=== PATIENT | female | born 1985 | race Caucasian/White ===

== ENCOUNTER 2016-06-06 15:20 | Emergency (ER) | payer OTHER ==
[2016-06-06 16:16] VITALS: BP 108/63
--- NOTE | 2016-06-06 16:55 | UC ---
Ear Complaint HPI - HPI Summary HPI Summary: 30 year old female with complaints of left ear pain x 2 days. Denies fever or chills. Has hx of sinusitis with surgery x 2, Dr Cabezas. Hx of allergies. Has had ear infections more over last few years. - History of Current Complaint Chief Complaint: UCEar Stated Complaint: LEFT EAR PAIN Time Seen by Provider: 06/06/16 16:41 Hx Obtained From: Patient Hx Last Menstrual Period: 06/06/16 ?: No Onset/Duration: Gradual Onset, Lasting Days - 2, Still Present Severity Initially: Mild Severity Currently: Moderate Alleviating Factors: Nothing Associated Signs/Symptoms: Positive: Hearing Loss - "seems muffled" Related History: Seasonal Allergies, Prior ENT Surgery - Allergies/Home Medications Allergies/Adverse Reactions: Allergies Allergy/AdvReac Type Severity Reaction Status Date / Time environmental Allergy Eyes Uncoded 06/06/16 16:11 Itchy/Swollen/Red/Watery Home Medications: Home Medications Ibuprofen TAB* [Advil TAB*] 400 mg PO Q6H PRN 06/06/16 [History Confirmed ] PMH/Surg Hx/FS Hx/Imm Hx Previously Healthy: Yes Endocrine History Of: Denies: Thyroid Disease Cardiovascular History Of: Denies: Hypertension Respiratory History Of: Reports: Asthma - Surgical History Surgical History: Yes Surgery Procedure, Year, and Place: Sinus surgery and fixed a deviated septum 2014, sinus surgery July 2015 - Family History Known Family History: Negative: Hypertension, Diabetes, Respiratory Disease - Social History Occupation: Employed Full-time Alcohol Use: Occasionally Substance Use Type: None Smoking Status (MU): Former Smoker Length of Time of Smoking/Using Tobacco: 3 years Have You Smoked in the Last Year: No Review of Systems Constitutional: Negative Skin: Negative Eyes: Negative ENT: Ear Ache - left Respiratory: Negative Cardiovascular: Negative Gastrointestinal: Negative Genitourinary: Negative Motor: Negative Neurovascular: Negative Musculoskeletal: Negative Neurological: Negative Psychological: Negative All Other Systems Reviewed And Are Negative: Yes Physical Exam Triage Information Reviewed: Yes Appearance: No Pain Distress, Well-Nourished, Ill-Appearing - mildly Vital Signs: Initial Vital Signs Temp 99.1 F 06/06/16 16:13 Pulse 75 06/06/16 16:13 Resp 16 06/06/16 16:13 BP 108/63 06/06/16 16:13 Pulse Ox 100 06/06/16 16:13 Vital Signs Reviewed: Yes Eyes: Positive: Conjunctiva Clear. Negative: Discharge ENT: Positive: Hearing grossly normal, Pharyngeal erythema, TM bulging, TM dull , TM red - left ear, Tonsillar swelling - 2+, Other: - no maxillary or frontal sinus pressure with palpation. Negative: Nasal congestion, Nasal drainage, Tonsillar exudate Neck: Positive: Supple, Nontender, No Lymphadenopathy Respiratory: Positive: Lungs clear, Normal breath sounds, No respiratory distress Cardiovascular: Positive: RRR, No Murmur Musculoskeletal: Positive: Strength Intact, ROM Intact Neurological: Positive: Alert, Muscle Tone Normal Psychological: Positive: Age Appropriate Behavior - pleasant and cooperative Skin: Negative: rashes, breakdown Ear Complaint Course/Dx - Differential Dx/Diagnosis Differential Diagnosis/HQI/PQRI: Cerumen Impaction, Otitis Media, URI Provider Diagnoses: Left otitis media Discharge - Discharge Plan Condition: Stable Disposition: HOME Prescriptions: Amoxicillin/Clavulanate TAB* [Augmentin TAB 875*] 875 mg PO BID #20 tab Fluconazole 150 MG (NF) [Diflucan 150 mg (NF)] 150 mg PO ONCE #2 tab Patient Education Materials: Otitis Media (ED), Amoxicillin/Clavulanate Potassium (By mouth), Fluconazole (By mouth) Referrals: Daisha Burns NP [Primary Care Provider] - Hernan Cabezas MD [Medical Doctor] - If Needed
== END 2016-06-06 17:05 | disposition home or self-care (01) ==
LOC: UCCORT 15:20
DX: H66.92 Otitis media, unspecified, left ear (principal); Z87.891 Personal history of nicotine dependence; Z98.890 Other specified postprocedural states
CPT/HCPCS: 99212; G0463

== ENCOUNTER 2016-08-09 10:41 | Emergency (ER) | payer OTHER ==
[2016-08-09 12:41] VITALS: BP 107/63
--- NOTE | 2016-08-09 13:08 | UC ---
Throat Pain/Nasal Jourdan HPI - HPI Summary HPI Summary: 30 female presents with complaints of dysphagia when swallowing foods or drinking. Patient states this began yesterday morning and it gets better as the day goes on. She also admits to having a slight cough that just began today. Has a significant history for sinus polyps/problems with 2 previous surgeries. She denies any out of her norm sinus pressure/discomfort. She admits to some nasal congestion. Denies fever, chills, nausea, vomiting, difficulty breathing and chest pain. States she wanted to make sure before it got worse because her is a ferreira and she does not want to get him sick. Take antihistamine daily and also uses flonase and saline rinses. Also has been getting ear infections often. Sees ENT. - History of Current Complaint Chief Complaint: UCRespiratory Stated Complaint: SORE THROAT,COUGH Time Seen by Provider: 08/09/16 12:53 Hx Obtained From: Patient Hx Last Menstrual Period: 08/05/16 ?: No Onset/Duration: Sudden Onset Severity: Mild Pain Intensity: 5 - only upon swallowing, intermittently, burning/achey Pain Scale Used: 0-10 Numeric Cough: Nonproductive Associated Signs & Symptoms: Positive: Dysphagia, Nasal Discharge - Allergies/Home Medications Allergies/Adverse Reactions: Allergies Allergy/AdvReac Type Severity Reaction Status Date / Time environmental Allergy Eyes Uncoded 08/09/16 12:41 Itchy/Swollen/Red/Watery Home Medications: Home Medications Omeprazole CAP* [Prilosec CAP* 20 MG] 20 mg PO DAILY 08/09/16 [History Confirmed 08/09/16] PMH/Surg Hx/FS Hx/Imm Hx Endocrine History Of: Denies: Thyroid Disease Cardiovascular History Of: Denies: Hypertension Respiratory History Of: Reports: Asthma - Surgical History Surgical History: Yes Surgery Procedure, Year, and Place: Sinus surgery and fixed a deviated septum 2014, sinus surgery July 2015 - Family History Known Family History: Negative: Hypertension, Diabetes, Respiratory Disease - Social History Alcohol Use: Occasionally Substance Use Type: None Smoking Status (MU): Former Smoker Length of Time of Smoking/Using Tobacco: 3 years Have You Smoked in the Last Year: No Review of Systems Constitutional: Negative Skin: Negative Eyes: Negative ENT: Sore Throat, Nasal Discharge Respiratory: Cough Cardiovascular: Negative Gastrointestinal: Negative Musculoskeletal: Negative Neurological: Headache - yesterday Psychological: Negative All Other Systems Reviewed And Are Negative: Yes Physical Exam Triage Information Reviewed: Yes Appearance: Well-Appearing, No Pain Distress, Well-Nourished Vital Signs: Initial Vital Signs Temp 98.8 F 08/09/16 12:37 Pulse 80 08/09/16 12:37 Resp 14 08/09/16 12:37 BP 107/63 08/09/16 12:37 Pulse Ox 98 08/09/16 12:37 Vital Signs Reviewed: Yes Eyes: Positive: Conjunctiva Clear ENT: Positive: Normal ENT inspection, Hearing grossly normal, Pharynx normal, Nasal congestion, TMs normal, Tonsillar swelling - minimal. Negative: Tonsillar exudate, Trismus, Muffled/hoarse voice Dental: Negative: Percussion Tenderness @, Cervical Lymphadenopathy Neck: Positive: Supple, Nontender, No Lymphadenopathy Respiratory: Positive: Chest non-tender, Lungs clear, Normal breath sounds, No respiratory distress, No accessory muscle use Cardiovascular: Positive: RRR, No Murmur, Pulses Normal, Brisk Capillary Refill Abdominal Exam: Normal Abdomen Description: Positive: Nontender, No Organomegaly, Soft Bowel Sounds: Positive: Present Musculoskeletal: Positive: Strength Intact, ROM Intact Neurological Exam: Normal Psychological Exam: Normal Skin Exam: Normal Throat Pain/Nasal Course/Dx - Differential Dx/Diagnosis Differential Diagnosis/HQI/PQRI: Influenza, Laryngitis, Pharyngitis, Sinusitis, Tonsillitis, URI Provider Diagnoses: rhinosinusitis Discharge - Discharge Plan Condition: Stable Disposition: HOME Patient Education Materials: Rhinosinusitis (ED) Referrals: Daisha Burns NP [Primary Care Provider] - Additional Instructions: Continue taking daily antihistamine, flonase and saline rinses for symptoms. Recommend Tyelnol and Ibuprofen for discomfort/fever. Also try using chloraseptic spray to help soothe throat, that you can find over the counter. Drink plenty of fluids, get plenty of rest and wash hands frequently. If symptoms worsen or new symptoms develop please seek medical attention.
== END 2016-08-09 13:15 | disposition home or self-care (01) ==
LOC: UCCORT 10:41
DX: J32.9 Chronic sinusitis, unspecified (principal); J45.909 Unspecified asthma, uncomplicated; Z87.891 Personal history of nicotine dependence
CPT/HCPCS: 99211; G0463

== ENCOUNTER 2016-08-14 10:43 | Emergency (ER) | payer OTHER ==
[2016-08-14 11:42] VITALS: BP 115/65
--- NOTE | 2016-08-14 11:53 | UC ---
Ear Complaint HPI - HPI Summary HPI Summary: had a sore throat earlier this month---for the past 2 days she has had a right ear aches - History of Current Complaint Chief Complaint: UCEar Stated Complaint: EAR PAIN Time Seen by Provider: 08/14/16 11:48 Hx Obtained From: Patient Hx Last Menstrual Period: 07/29/16 ?: No Onset/Duration: Sudden Onset, Lasting Days - 2, Still Present Severity Initially: Moderate Severity Currently: Moderate Pain Intensity: 7 Pain Scale Used: 0-10 Numeric Aggravating Factors: Nothing Alleviating Factors: Nothing - has triend Mucinex and Naproxen D with out relief Associated Signs/Symptoms: Positive: Hearing Loss - muffled sounds - Allergies/Home Medications Allergies/Adverse Reactions: Allergies Allergy/AdvReac Type Severity Reaction Status Date / Time environmental Allergy Eyes Uncoded 08/14/16 11:42 Itchy/Swollen/Red/Watery Home Medications: Home Medications Pseudoephedrine-Naproxen Sodiu [Aleve-D Sinus & Cold 120-220 mg] 1 tab PO Q6H PRN 08/14/16 [History Confirmed 08/14/16] PMH/Surg Hx/FS Hx/Imm Hx Previously Healthy: No Endocrine History Of: Denies: Thyroid Disease Cardiovascular History Of: Denies: Hypertension Respiratory History Of: Reports: Asthma - Surgical History Surgical History: Yes Surgery Procedure, Year, and Place: Sinus surgery and fixed a deviated septum 2014, sinus surgery July 2015 - Family History Known Family History: Negative: Hypertension, Diabetes, Respiratory Disease - Social History Occupation: Employed Full-time - landscaping Lives: With Family Alcohol Use: Occasionally Substance Use Type: None Smoking Status (MU): Former Smoker Length of Time of Smoking/Using Tobacco: 3 years Have You Smoked in the Last Year: No Review of Systems Constitutional: Chills Skin: Negative Eyes: Negative ENT: Ear Ache Respiratory: Negative Cardiovascular: Negative Gastrointestinal: Negative Genitourinary: Negative Motor: Negative Neurovascular: Negative Musculoskeletal: Negative Neurological: Negative Psychological: Negative All Other Systems Reviewed And Are Negative: Yes Physical Exam Triage Information Reviewed: Yes Appearance: Well-Appearing, No Pain Distress, Well-Nourished Vital Signs: Initial Vital Signs Temp 97.6 F 08/14/16 11:36 Pulse 81 08/14/16 11:36 Resp 15 08/14/16 11:36 BP 115/65 08/14/16 11:36 Pulse Ox 98 08/14/16 11:36 Vital Signs Reviewed: Yes Eye Exam: Normal Eyes: Positive: Conjunctiva Clear ENT Exam: Normal ENT: Positive: Normal ENT inspection, Hearing grossly normal, Pharynx normal, TMs normal - left, TM red - right. Negative: Nasal congestion, Nasal drainage, Tonsillar swelling, Tonsillar exudate, Trismus, Muffled/hoarse voice Dental Exam: Normal Neck exam: Normal Neck: Positive: Supple, Nontender, No Lymphadenopathy Respiratory Exam: Normal Respiratory: Positive: Chest non-tender, Lungs clear, Normal breath sounds, No respiratory distress, No accessory muscle use Cardiovascular Exam: Normal Cardiovascular: Positive: RRR, No Murmur, Pulses Normal, Brisk Capillary Refill Musculoskeletal Exam: Normal Musculoskeletal: Positive: Strength Intact, ROM Intact, No Edema Neurological Exam: Normal Neurological: Positive: Alert, Muscle Tone Normal Psychological Exam: Normal Skin Exam: Normal Ear Complaint Course/Dx - Course Course Of Treatment: continue otc treated for decongestant, and pain add Amoxicillin for 10 days (and diflucan if needed) increase fluids rest follow with pcp - Differential Dx/Diagnosis Differential Diagnosis/HQI/PQRI: Cellulitis, Cerumen Impaction, Otitis Externa, Otitis Media, URI Provider Diagnoses: Right Otitis Media Discharge - Discharge Plan Condition: Stable Disposition: HOME Prescriptions: Amoxicillin (*) [Amoxicillin 875 MG (*)] 875 mg PO BID #20 tab Fluconazole [Diflucan 150 MG (NF)] 150 mg PO ONCE #1 tab Patient Education Materials: Amoxicillin (By mouth), Otitis Media (ED) Referrals: Dasiha Burns NP [Primary Care Provider] - 2 Weeks
== END 2016-08-14 12:36 | disposition home or self-care (01) ==
LOC: UCCORT 10:43
DX: H66.91 Otitis media, unspecified, right ear (principal); J45.909 Unspecified asthma, uncomplicated; Z87.891 Personal history of nicotine dependence
CPT/HCPCS: 99212; G0463

== ENCOUNTER 2016-08-15 09:03 | Emergency (ER) | payer OTHER ==
[2016-08-15 09:23] VITALS: BP 117/68
[2016-08-15] MEDS ORDERED: Albuterol 2.5 MG/3 ML NEB.SOL* (0.083%) INH ONE (09:37)
[2016-08-15] MEDS ORDERED: Ipratropium 0.5MG/2.5ML NEB* 0.5 MG/2.5 ML NEB.SOLN INH ONE (09:37)
[2016-08-15] MEDS ORDERED: predniSONE TAB* 20 MG PO ONE (09:37)
--- NOTE | 2016-08-15 09:37 | UC ---
Respiratory Complaint HPI - History of Current Complaint Chief Complaint: UCRespiratory Stated Complaint: COUGH Time Seen by Provider: 08/15/16 09:30 Hx Obtained From: Patient Hx Last Menstrual Period: 07/29/16 ?: No Onset/Duration: Sudden Onset, Lasting Weeks - 1, Worse Since - onset Timing: Constant Severity Initially: Mild Severity Currently: Moderate Character: Cough: Nonproductive Aggravating Factors: Deep Breaths Associated Signs And Symptoms: Positive: Dyspnea, Fever, Chills, Wheezing, URI, Nasal Congestion, Sinus Discomfort Related History: Seasonal Allergies - with nasal polyps - Risk Factors Pulmonary Embolism Risk Factors: Negative Cardiac Risk Factors: Negative Pseudomonas Risk Factors: Negative Tuberculosis Risk Factors: Negative - Allergies/Home Medications Allergies/Adverse Reactions: Allergies Allergy/AdvReac Type Severity Reaction Status Date / Time environmental Allergy Eyes Uncoded 08/14/16 11:42 Itchy/Swollen/Red/Watery Home Medications: Home Medications Albuterol HFA INHALER* [Ventolin HFA Inhaler*] 2 puff INH BID PRN 08/15/16 [ History Confirmed 08/15/16] PMH/Surg Hx/FS Hx/Imm Hx Endocrine History Of: Denies: Thyroid Disease Cardiovascular History Of: Denies: Hypertension Respiratory History Of: Reports: Asthma - Surgical History Surgical History: Yes Surgery Procedure, Year, and Place: Sinus surgery and fixed a deviated septum 2014, sinus surgery July 2015 - Family History Known Family History: Negative: Cardiac Disease, Hypertension, Diabetes, Respiratory Disease - Social History Occupation: Employed Full-time Lives: With Family Alcohol Use: Occasionally Substance Use Type: None Smoking Status (MU): Former Smoker Length of Time of Smoking/Using Tobacco: 3 years Have You Smoked in the Last Year: No Review of Systems Constitutional: Fever, Chills ENT: Sore Throat, Ear Ache, Nasal Discharge Respiratory: Shortness Of Breath, Cough All Other Systems Reviewed And Are Negative: Yes Physical Exam Triage Information Reviewed: Yes Appearance: No Pain Distress, Well-Nourished, Ill-Appearing Vital Signs: Initial Vital Signs Temp 100.1 F 08/15/16 09:16 Pulse 117 08/15/16 09:16 Resp 24 08/15/16 09:16 BP 117/68 08/15/16 09:16 Pulse Ox 98 08/15/16 09:16 Vital Signs Reviewed: Yes Eyes: Positive: Conjunctiva Clear ENT: Positive: TMs normal - , TM bulging - AD, pus filled, TM dull - AD Neck exam: Normal Respiratory: Positive: Wheezing - diffuse end inspiratory and exiratory Cardiovascular: Positive: RRR. Negative: No Murmur Musculoskeletal Exam: Normal Neurological Exam: Normal Psychological Exam: Normal Skin Exam: Normal UC Diagnostic Evaluation - Laboratory O2 Sat by Pulse Oximetry: 98 Re-Evaluation - Re-Evaluation First Eval Re-Evaluation Time: 10:15 Change: Improved - wheezing is much better Respiratory Course/Dx - Differential Dx/Diagnosis Differential Diagnosis/HQI/PQRI: Asthma, Lower Resp Infection, Sinusitis Provider Diagnoses: Acute URI. Asthama with acute exacerbation. Acute right supportative otitis media. Discharge - Discharge Plan Condition: Stable Disposition: HOME Prescriptions: Albuterol/Ipratropium RESP(NF) [Combivent Respimat(NF)] 2 puff IN QID PRN #1 aer PRN Reason: Wheezing Amoxicillin/Clavulanate TAB* [Augmentin TAB 875*] 875 mg PO BID #20 tab predniSONE TAB* [Deltasone TAB*] 20 mg PO DAILY #18 tab Patient Education Materials: Upper Respiratory Infection (ED), Otitis Media (ED ), Amoxicillin/Clavulanate Potassium (By mouth), Asthma (ED), Prednisone (By mouth), Ipratropium/Albuterol (By breathing) Additional Instructions: Tilt the head down when doing the flonase and do the flonase 30-45 minutes after doing the Neilmed Sinus rinse. NEILMED SINUS RINSE: CHECK OUT AT [facility] [employer] Saline nasal wash helps with mucous, allergies and congestion. It can be used up to twice a day or only as needed. Use lukewarm tap water. It does not have to be sterilized or distilled water. Do 1/3 on each side and snort out of both nostrils. Repeat the process with 1/6 of the bottle on each side with snorting in between to finish the solution in the bottle
== END 2016-08-15 10:31 | disposition home or self-care (01) ==
LOC: UCCORT 09:03
DX: J06.9 Acute upper respiratory infection, unspecified (principal); J45.901 Unspecified asthma with (acute) exacerbation; H66.001 Acute suppurative otitis media without spontaneous rupture of ear drum, right ear; Z87.891 Personal history of nicotine dependence
CPT/HCPCS: 99213; G0463; J7512; J7644

== ENCOUNTER 2016-12-08 07:51 | Emergency (ER) | payer OTHER ==
[2016-12-08 08:00] VITALS: BP 113/59
[2016-12-08] MEDS ORDERED: Albuterol 2.5 MG/3 ML NEB.SOL* (0.083%) INH ONE (08:12)
--- NOTE | 2016-12-08 08:16 | UC ---
Respiratory Complaint HPI - HPI Summary HPI Summary: cough x 3 days + chest congestion , wheezing , sob , no fever, no chills, cough is dry , worse with deep breathing no nasal congestion , no sore throat - History of Current Complaint Chief Complaint: UCRespiratory Stated Complaint: COUGH,WHEEZING Time Seen by Provider: 12/08/16 08:08 Hx Obtained From: Patient Hx Last Menstrual Period: 11/18 ?: No Onset/Duration: Gradual Onset, Lasting Days - 3, Still Present Severity Initially: Moderate Severity Currently: Moderate Character: Cough: Nonproductive Aggravating Factors: Exertion, Deep Breaths Alleviating Factors: Bronchodilator Associated Signs And Symptoms: Positive: Dyspnea, Wheezing. Negative: Fever, Chills, Calf Pain, Calf Swelling, URI, Nasal Congestion, Hoarseness, Sinus Discomfort - Allergies/Home Medications Allergies/Adverse Reactions: Allergies Allergy/AdvReac Type Severity Reaction Status Date / Time environmental Allergy Eyes Uncoded 12/08/16 08:01 Itchy/Swollen/Red/Watery PMH/Surg Hx/FS Hx/Imm Hx Respiratory History: Asthma - Surgical History Surgical History: Yes Surgery Procedure, Year, and Place: Sinus surgery and fixed a deviated septum 2014, sinus surgery July 2015 - Family History Known Family History: Negative: Cardiac Disease, Hypertension, Diabetes, Respiratory Disease - Social History Alcohol Use: Occasionally Substance Use Type: None Smoking Status (MU): Former Smoker Length of Time of Smoking/Using Tobacco: 3 years Have You Smoked in the Last Year: No Review of Systems Constitutional: Negative Skin: Negative Eyes: Negative ENT: Negative Respiratory: Shortness Of Breath, Cough Cardiovascular: Negative Gastrointestinal: Negative All Other Systems Reviewed And Are Negative: Yes Physical Exam Triage Information Reviewed: Yes Appearance: Well-Appearing, No Pain Distress, Well-Nourished Vital Signs: Initial Vital Signs Temp 99 F 12/08/16 07:55 Pulse 92 12/08/16 07:55 Resp 20 12/08/16 07:55 BP 113/59 12/08/16 07:55 Pulse Ox 96 12/08/16 07:55 Vital Signs Reviewed: Yes Eyes: Positive: Conjunctiva Clear ENT: Positive: Normal ENT inspection, Hearing grossly normal, Pharynx normal Neck: Positive: Supple, Nontender Respiratory: Positive: Respiratory distress - mild, Decreased breath sounds, Wheezing. Negative: No accessory muscle use Cardiovascular: Positive: RRR, No Murmur, Pulses Normal Abdominal Exam: Normal Skin Exam: Normal UC Diagnostic Evaluation - Laboratory O2 Sat by Pulse Oximetry: 96 Respiratory Course/Dx - Differential Dx/Diagnosis Provider Diagnoses: asthmatic bronchitis Discharge - Discharge Plan Condition: Stable Disposition: HOME Prescriptions: predniSONE TAB* [Deltasone TAB*] 40 mg PO DAILY #10 tab Patient Education Materials: Asthma (ED) Referrals: Daisha Burns NP [Primary Care Provider] - 7 Days
== END 2016-12-08 08:48 | disposition home or self-care (01) ==
LOC: UCCORT 07:51
DX: J45.909 Unspecified asthma, uncomplicated (principal); Z87.891 Personal history of nicotine dependence
CPT/HCPCS: 99212; G0463

== ENCOUNTER 2017-04-06 07:41 | Emergency (ER) | payer OTHER ==
--- NOTE | 2017-04-06 07:44 | UC ---
Throat Pain/Nasal Jourdan HPI - HPI Summary HPI Summary: 31 YEAR OLD FEMALE PRESENTS WITH SEVERE RIGHT EAR PAIN AND SINUS CONGESTION. - History of Current Complaint Stated Complaint: RIGHT EAR COMPLAINT/CONGESTION Time Seen by Provider: 04/06/17 07:44 Hx Obtained From: Patient Hx Last Menstrual Period: 11/18 Onset/Duration: Sudden Onset Severity: Moderate Pain Scale Used: 0-10 Numeric - 5 - Allergies/Home Medications Allergies/Adverse Reactions: Allergies Allergy/AdvReac Type Severity Reaction Status Date / Time environmental Allergy Eyes Uncoded 04/06/17 07:47 Itchy/Swollen/Red/Watery Home Medications: Home Medications Aleve D 1 tab PO Q12H PRN 04/06/17 [History] Diphenhydramine HCl [Benadryl Allergy 25 MG CAP] 25 mg PO Q6H PRN 04/06/17 [ History Confirmed 04/06/17] Fluticas/Salmet 115/21 HFA(NF) [Advair HFA 115/21 (NF)] 2 puff INH DAILY [History Confirmed 04/06/17] Pseudoephedrine TAB* [Sudafed TAB*] 30 mg PO Q6H PRN 04/06/17 [History Confirmed 04/06/17] PMH/Surg Hx/FS Hx/Imm Hx Previously Healthy: Yes - Surgical History Surgical History: Yes Surgery Procedure, Year, and Place: Sinus surgery and fixed a deviated septum 2014, sinus surgery July 2015 - Family History Known Family History: Negative: Cardiac Disease, Hypertension, Diabetes, Respiratory Disease - Social History Alcohol Use: Occasionally Substance Use Type: None Smoking Status (MU): Former Smoker Length of Time of Smoking/Using Tobacco: 3 years Have You Smoked in the Last Year: No Review of Systems Constitutional: Negative Skin: Negative Eyes: Negative ENT: Sore Throat, Ear Ache, Nasal Discharge, Sinus Congestion, Sinus Pain/ Tenderness Respiratory: Negative Cardiovascular: Negative Gastrointestinal: Negative Genitourinary: Negative Motor: Negative Neurovascular: Negative Musculoskeletal: Negative Neurological: Negative Psychological: Negative All Other Systems Reviewed And Are Negative: Yes Physical Exam Triage Information Reviewed: Yes Vital Signs Reviewed: Yes Eye Exam: Normal ENT: Positive: Pharyngeal erythema, Nasal congestion, Nasal drainage, Other - RIGHT EAR AOM Dental Exam: Normal Neck exam: Normal Neck: Positive: 1 Respiratory Exam: Normal Cardiovascular Exam: Normal Abdominal Exam: Normal Musculoskeletal Exam: Normal Neurological Exam: Normal Psychological Exam: Normal Skin Exam: Normal Throat Pain/Nasal Course/Dx - Differential Dx/Diagnosis Provider Diagnoses: RIGHT EAR AOM. SINUS CONGESTION Discharge - Discharge Plan Condition: Stable Disposition: HOME Prescriptions: Amoxicillin/Clavulanate TAB* [Augmentin TAB 875*] 875 mg PO BID #20 tab Methylprednisolone [Medrol Dosepak 4 MG*] 4 mg PO .SEE MADELINE INSTRUCTION #21 tab Neomyc/Polym/HC 1% OTIC SUSP* [Cortisporin Otic Susp 1%*] 4 drop RIGHT EAR QID # 1 btl Patient Education Materials: Sinusitis (ED), Otitis Externa (ED), Otitis Media (ED), Earache (ED) Referrals: Daisha Burns NP [Primary Care Provider] -
[2017-04-06 08:04] VITALS: BP 107/71
== END 2017-04-06 08:07 | disposition home or self-care (01) ==
LOC: UCCORT 07:41
DX: J02.0 Streptococcal pharyngitis (principal)
CPT/HCPCS: 99212; G0463

== ENCOUNTER 2017-04-07 18:52 | Emergency (ER) | payer OTHER ==
[2017-04-07 19:57] VITALS: BP 123/70
--- NOTE | 2017-04-19 20:03 | UC ---
Ear Complaint HPI - HPI Summary HPI Summary: 31 year old female presents with complains of severe right ear pain after failing outpatient therapy x 2. - History of Current Complaint Chief Complaint: UCEar Stated Complaint: RE-CK, EAR PAIN Hx Obtained From: Patient Hx Last Menstrual Period: 03/19/17 ?: No Onset/Duration: Sudden Onset Severity Initially: Severe Severity Currently: Severe Pain Intensity: 10 Pain Scale Used: 0-10 Numeric - Allergies/Home Medications Allergies/Adverse Reactions: Allergies Allergy/AdvReac Type Severity Reaction Status Date / Time environmental Allergy Eyes Uncoded 04/07/17 19:57 Itchy/Swollen/Red/Watery PMH/Surg Hx/FS Hx/Imm Hx Previously Healthy: Yes - Surgical History Surgical History: Yes Surgery Procedure, Year, and Place: Sinus surgery and fixed a deviated septum 2014, sinus surgery July 2015, sinus 02/2017 - Family History Known Family History: Negative: Cardiac Disease, Hypertension, Diabetes, Respiratory Disease - Social History Alcohol Use: Occasionally Substance Use Type: None Smoking Status (MU): Former Smoker Length of Time of Smoking/Using Tobacco: 3 years Have You Smoked in the Last Year: No Review of Systems Constitutional: Negative Skin: Negative Eyes: Negative ENT: Ear Ache Respiratory: Negative Cardiovascular: Negative Gastrointestinal: Negative Genitourinary: Negative Motor: Negative Neurovascular: Negative Musculoskeletal: Negative Neurological: Negative Psychological: Negative All Other Systems Reviewed And Are Negative: Yes Physical Exam Triage Information Reviewed: Yes Vital Signs: Initial Vital Signs Temp 36.6 C 04/07/17 19:52 Pulse 76 04/07/17 19:52 Resp 16 04/07/17 19:52 BP 123/70 04/07/17 19:52 Pulse Ox 99 04/07/17 19:52 Vital Signs Reviewed: Yes Eye Exam: Normal ENT: Positive: Other - mastoid very tender/eruthema/swelling Dental Exam: Normal Neck exam: Normal Neck: Positive: 1 Respiratory Exam: Normal Cardiovascular Exam: Normal Abdominal Exam: Normal Musculoskeletal Exam: Normal Neurological Exam: Normal Psychological Exam: Normal Skin Exam: Normal Ear Complaint Course/Dx - Differential Dx/Diagnosis Provider Diagnoses: mastoiditis Discharge - Discharge Plan Condition: Stable Disposition: OTHER Discharge Disposition Comment: patient suggested to go to the er Patient Education Materials: Earache (ED) Referrals: Daisha Burns NP [Primary Care Provider] - Additional Instructions: patient suggested to go to the er.
== END 2017-04-07 20:16 ==
LOC: UCCORT 18:52
DX: H70.91 Unspecified mastoiditis, right ear (principal); Z87.891 Personal history of nicotine dependence
CPT/HCPCS: 99212; G0463

== ENCOUNTER 2017-05-04 10:24 | Emergency (ER) | payer OTHER ==
--- OUTSIDE RECORDS SUMMARY | 2017-05-04 10:34 | XMS REPORT ---
:1985 External Reference #:[id number] Author Organization [employer] Address [address] [address] Phone [phone] Care Team Providers Name Role Phone Csaandra Burns NP Care Team Information Frozen Food Department Manager Unavailable Payers Type Date Identification Numbers Payment Provider Subscriber Commercial Policy Number: [id number] [facility] Caroline Brunson PayID: [id number] [address] [address] [place] [address] Problems Date Description Provider Status Onset: 03/13/2014 Allergic rhinitis due to pollen Casandra Burns NP Active Family History Date Family Member(s) Problem(s) Comments Father Hypertension Mother Diabetes, Adult Children None Siblings 3 BROTHERS HEALTHY Social History Type Date Description Comments Marital Status Occupation [employer] Cigarette Use Former Cigarette Smoker 1-5 Cigarettes Daily Cigarette Use Quit - Age 23 ETOH Use Occasionally consumes alcohol Recreational Drug Use Denies Drug Use Smoking Patient is a former smoker Allergies, Adverse Reactions, Alerts Date Description Reaction Status Severity Comments 06/07/2015 NKDA active Medications Medication Date Status Form Strength Qnty SIG Indications Ordering Provider Fluconazole 03/08 Active Tablets 150mg 1tabs 1 by mouth B37.9 may repeat Casandra, after 2 GARBAGE COLLECTOR days if still symptomati c Guaifenesin ac 03/08 Active Syrup 100-10mg/ 473ml 10 ml 5ML every 4 Casandra, hours as GARBAGE COLLECTOR needed for cough Montelukast 01/22 Active Tablets 10mg 30tab one by R05 Grant s mouth Casandra, every at GARBAGE [employer]OR bedtime Epinephrine 01/04 Active Solution 0.3mg/0.3 1unit use as Auto-Inject ML raf Escamilla for MD allergic reaction Auvi-Q 01/04 Active Solution 0.3mg/0.3 2unit use as J30.1 Auto-Inject ML s needed for Zachery Escamilla MD s Advair HFA 12/16 Active Aerosol 115-21mcg 12uni inhale 2 Patricia, /2016 /Act ts puffs Rox, twice a PA day Ipratropium 12/14 Active Solution 0.5-2.5(3 270un inhale the , [place]/Albuterol )mg/3ML its contents Casandra, Sulfate of one GARBAGE [employer]OR vial via nebulizer every 4 to 6 hours as needed for shortness of breath / wheezing Nebulizer 12/08 Active Device 1unit use as Grant s directed KELLI Guajardo Loratadine 05/07 Active Tablets 10mg 30tab 1 by mouth J30.89 Grant, s every day MD Luis Felipe Fluticasone 06/05 Active Suspension 50mcg/Act 1unit 2 sprays J30.89 Grant, s each nare Casandra, every day GARBAGE COL[employer]OR Ventolin HFA 03/13 Active Aerosol 108(90Bas 1unit 2 puffs J20.9 Oswaldo , e) s every 4 Casandra, mcg/Act hrs/prn GARBAGE [employer]OR cough or wheezing Ortho Tri-Cyclen Active Tablets 0.18/0.21 1 by mouth Unknown Lo /0000 5/0.25 every day mg-25 mcg Valacyclovir HCL Active Tablets 500mg 1 by mouth Unknown /0000 every day Amoxicillin/Clavu Active Tablets 875-125mg Unknown lanate Potassium /0000 Methylprednisolon Active TBPK 4mg Unknown e /0000 Neomycin/Polymyxi Active Suspension 3.5-24326 Unknown n/Hydrocortisone /0000 -1 (Otic) Guaifenesin ac 12/14 Hx Syrup 100-10mg/ 120ml 5ml every J45.41 Oswaldo 5ML 4 hours as Casandra, - needed for GARBAGE COLLECTOR 01/04 cough Augmentin 11/13 Hx Tablets 875-125mg 20tab one by J32.8 Patricia s mouth Rox, - twice a PA 12/14 day for days Prednisone 11/13 Hx Tablets 10mg 48tab as J32.8 s annel Gramajo - taper over PA 12/14 12 Diflucan 11/13 Hx Tablets 150mg 2tabs 1 tab by J32.8 mouth x1, Rox, - repeat PA 12/14 dose days after first dose. Budesonide 10/08 Hx Suspension 0.25mg/2M 60uni respules J33.0 L ts via nasal Andi - rinse 12/14 twice a day Prednisone 10/08 Hx Tablets 10mg 38tab take as J33.0 s David Perez MD 10/29 Prednisone 09/14 Hx Tablets 20mg QS 3 by mouth J45.51 every day Casandra, - x 3 days, GARBAGE [employer]OR 01/04 2 every day x 3 days; 1 every day x 3 days then 1/2 tab every day x 3 days then stop Azithromycin 09/14 Hx Tablets 250mg 6tabs 2 by mouth J20.9 every day MD Luis Felipe - x 1 day 10/08 then 1 by mouth every day x 4 days Guaifenesin Acj 09/14 Hx Syrup 100-10mg/ 473ml 1-2 J20.9 5ML devon Briscoe MD - as needed 09/14 every hours as needed, voip network technician checked Guaifenesin 09/14 Hx Solution 300mg/15M 473ml 1-2 J20.9 L devon Briscoe MD - as needed 10/08 every hours as needed, voip network technician checked 09/14/16 Diflucan 02/06 Hx Tablets 150mg 2tabs 1 by mouth GrantSeptember repeat MD Luis Felipe - in 2 days 10/08 if still symptomati c Omeprazole 10/[address] 40mg 30cap 1 by mouth K29.00 Grant s every Casandra - dayDUE For GARBAGE COLLECTOR 06/07 A Visit With The Doctor Cetirizine HCL 06/05 Hx Tablets 10mg 30tab 1 by mouth J30.89 Grant s every day Casandra - GARBAGE COLLECTOR 05/07 Diflucan 05/22 Hx Tablets 150mg 2tabs one tab by [facility] mouth Casandra, - times one GARBAGE COLLECTOR , take 1 po two days after first dose if symptoms persist. Amoxicillin/Clavu 05/14 Hx Tablets 875-125mg 20tab 1 by mouth 462 [facility], lanate s twice a Casandra, - day GARBAGE COLLECTOR 10/08 Guaifenesin ac 05/14 Hx Syrup 100-10mg/ 120ml 1-2 462 5ML teaspoon Casandra, - by mouth GARBAGE COLLECTOR 06/07 every hours as needed Advair Diskus 04/16 Hx Aerosol 100-50mcg 1unit 2 puffs at R05 [facility] /Dose s bedtime Casandra, - GARBAGE COLLECTOR 12/16 Singulair 04/16 Hx Tablets 10mg 30tab one by [facility] s mouth Casandra, - every at GARBAGE COLLECTOR 01/22 bedtime Guaifenesin ac 04/16 Hx Syrup 100-10mg/ 120ml 1-2 493.00 5ML teaspoon Casandra, - by mouth GARBAGE COLLECTOR 04/30 every hours as needed Azithromycin 03/13 Hx Tablets 250mg 6tabs 2 by mouth 466.0 every day Casandra, - x 1 day GARBAGE COLLECTOR 04/16 then 1 by mouth every day x 4 days Medrol (Fransisco) 03/13 Hx Tablets 4mg 1pack as 847.2 directed Casandra, - GARBAGE COLLECTOR 04/30 Metaxalone 03/13 Hx Tablets 800mg 42tab 1 by mouth 847.2 s three Casandra, - times a GARBAGE COLLECTOR /2013 Prednisone 00/00 Hx Tablets 20mg 2 tablets Unknown /0000 daily for - 5 days. 04/06 Immunizations CPT Code Status Date Vaccine Lot # [id number] Given 02/19/2017 Influenza Vac, 3 Yrs & Older, Quadrivalent, [id number] [place] [address] Given 06/07/2015 Tdap (Adacel) Ages 7 And Above Only [id number] Given 02/13/2015 Influenza Vac, 3 Yrs & Older, Quadrivalent, [id number] Split, Im Use [id number] Given 03/13/2014 Fluzone Trivalent Immunization [id number] Refused 09/14/2016 Afluria Or Fluvirin Flu Vac Intramuscular Vital Signs Date Vital Result Comment 04/07/2017 Body Temperature 98.3 F Weight 136.00 lb Heart Rate 95 /min BP Systolic 110 mmHg BP Diastolic 68 mmHg Height 60 inches 5'0" O2 % BldC Oximetry 98 % BMI (Body Mass Index) 26.6 kg/m2 03/08/2017 Body Temperature 99.0 F Weight 134.00 lb BP Systolic 101 mmHg BP Diastolic 74 mmHg Height 60 inches 5'0" BMI (Body Mass Index) 26.2 kg/m2 01/29/2017 Body Temperature 97.9 F Weight 128.00 lb Heart Rate 75 /min BP Systolic 122 mmHg BP Diastolic 68 mmHg Height 60 inches 5'0" O2 % BldC Oximetry 99 % BMI (Body Mass Index) 25.0 kg/m2 01/27/2017 Body Temperature 98.3 F Weight 129.00 lb Heart Rate 68 /min BP Systolic 110 mmHg BP Diastolic 60 mmHg Height 60 inches 5'0" BMI (Body Mass Index) 25.2 kg/m2 01/04/2017 Body Temperature 98.0 F Weight 130.00 lb Heart Rate 82 /min BP Systolic 106 mmHg BP Diastolic 60 mmHg Height 60 inches 5'0" O2 % BldC Oximetry 95 % BMI (Body Mass Index) 25.4 kg/m2 12/17/2016 Body Temperature 98.5 F Heart Rate 88 /min BP Systolic 120 mmHg BP Diastolic 70 mmHg Height 60 inches 5'0" 12/16/2016 Body Temperature 98.4 F Weight 130.00 lb Heart Rate 81 /min BP Systolic 118 mmHg BP Diastolic 70 mmHg Height 60 inches 5'0" O2 % BldC Oximetry 96 % BMI (Body Mass Index) 25.4 kg/m2 12/14/2016 Body Temperature 99.1 F Weight 130.00 lb BP Systolic 116 mmHg BP Diastolic 74 mmHg Height 60 inches 5'0" BMI (Body Mass Index) 25.4 kg/m2 11/13/2016 Body Temperature 98.4 F Weight 131.00 lb Heart Rate 82 /min Height 60 inches 5'0" O2 % BldC Oximetry 99 % BMI (Body Mass Index) 25.6 kg/m2 10/29/2016 Body Temperature 98.5 F Weight 131.00 lb Heart Rate 96 /min BP Systolic 120 mmHg BP Diastolic 60 mmHg Height 60 inches 5'0" O2 % BldC Oximetry 96 % BMI (Body Mass Index) 25.6 kg/m2 10/08/2016 Body Temperature 98.2 F Weight 131.00 lb Heart Rate 88 /min BP Systolic 108 mmHg BP Diastolic 70 mmHg Height 60 inches 5'0" O2 % BldC Oximetry 96 % BMI (Body Mass Index) 25.6 kg/m2 09/14/2016 Body Temperature 98.2 F Weight 126.00 lb Heart Rate 84 /min BP Systolic 120 mmHg BP Diastolic 68 mmHg BP Systolic Recheck 105 mmHg Height 60 inches 5'0" O2 % BldC Oximetry 92 % Post Neb TX BMI (Body Mass Index) 24.6 kg/m2 05/07/2016 Body Temperature 99.0 F Weight 129.00 lb BP Systolic 104 mmHg BP Diastolic 64 mmHg Height 60 inches 5'0" BMI (Body Mass Index) 25.2 kg/m2 06/07/2015 Body Temperature 98.5 F Weight 123.00 lb BP Systolic 100 mmHg BP Diastolic 62 mmHg Height 60 inches 5'0" BMI (Body Mass Index) 24.0 kg/m2 Urine Dipstick - Blood TRACE Urine Dipstick - Protein NEGATIVE Urine Dipstick - Glucose NEGATIVE Urine Dipstick - Leukocytes NEGATIVE Left ear audiology results 20 db Right ear audiology results 20 db 10/22/2014 Body Temperature 99.6 F Weight 116.00 lb Heart Rate 76 /min BP Systolic 110 mmHg BP Diastolic 72 mmHg Height 60 inches 5'0" BMI (Body Mass Index) 22.7 kg/m2 06/05/2014 Body Temperature 98.7 F Weight 118.00 lb BP Systolic 100 mmHg BP Diastolic 58 mmHg Height 60 inches 5'0" BMI (Body Mass Index) 23.0 kg/m2 05/14/2014 Body Temperature 99.3 F Weight 115.00 lb BP Systolic 122 mmHg BP Diastolic 80 mmHg 04/30/2014 Weight 114.00 lb Heart Rate 68 /min BP Systolic 100 mmHg BP Diastolic 58 mmHg Height 59.5 inches 4'11.50" BMI (Body Mass Index) 22.6 kg/m2 Urine Dipstick - Blood NEGATIVE Leuko Negative Urine Dipstick - Protein NEGATIVE Urine Dipstick - Glucose NEGATIVE Left ear audiology results 20 db Right ear audiology results 20 db 04/16/2014 Body Temperature 98.1 F Weight 118.00 lb BP Systolic 110 mmHg BP Diastolic 62 mmHg Height 60.25 inches 5'0.25" BMI (Body Mass Index) 22.9 kg/m2 03/13/2014 Body Temperature 98.8 F Weight 116.00 lb BP Systolic 104 mmHg BP Diastolic 60 mmHg Height 60 inches 5'0" O2 Saturation Level with Exercise 94 % BMI (Body Mass Index) 22.7 kg/m2 Results Test Date Test Result H/L Range Note Laboratory test 03/08/2017 Throat Culture Microbiology res 1 finding <SEE NOTE> Laboratory test 01/27/2017 Throat Culture Microbiology res 2 finding <SEE NOTE> Babesia M AB Igg Igm 01/27/2017 Babesia Microti < 1:16 3, 4 -RL Igg Babesia Microti Igm <1:20 3, 5 E Chaffeensis Abs 01/27/2017 E Chaffeensis Igg <1:64 3, 6 E Chaffeensis Igm < 1:16 3, 7 Hga Antibodies,IgG and IgM -RL 01/27/2017 Hga AB Igg <1:80 3, 8 Hga AB Igm < 1:16 3, 9 Andi Allergy Panel 10/08/2016 Alternaria Class 0 class 10 Alternaria Conc <0.10 10 Aspergillus Class 0 class 10 Aspergillus Conc <0.10 10 [place]/ Maple Class 1 class 10 [place]/ Maple Conc 0.52 10 Cat Dander Class 3 class 10 Cat Dander Conc 4.98 10 Cladosporium Class 0 class 10 Cladosporium Conc <0.10 10 D Farinae Class 0/1 class 10 D Farinae Conc 0.32 10 D Pteronyssinus Class 1 class 10 D Pteronyssinus Conc 0.51 10 Dog Dander Class 2 class 10 Dog Dander Conc 2.04 10 Chadian Plantain Class 0 class 10 Chadian Plantain Conc <0.10 10 Yeyo Grass Class 0 class 10 Yeyo Grass Conc <0.10 10 [place] Class 0 class 10 [place] Conc <0.10 10 Graves Class 0 class 10 Graves Conc <0.10 10 Common Ragweed Class 2 class 10 Common Ragweed Conc 0.80 10 Zeb Class 0 class 10 Zeb Conc <0.10 10 Total IgE 45 IU/mL 1-165 10 Allergy Inhalant Panel-FCMG 10/08/2016 Bahia Grass Class 0 class 10 Bahia Grass Conc <0.10 10 Berm[place] Grass Class 1 class 10 [place]uda Grass Conc 0.37 10 Common Siver Birch Class 0 class 10 Common Silver Birch Conc <0.10 10 Elm Class 0 class 10 Elm Conc <0.10 10 Yelm grass [place] blue class 0 class 10 Yelm grass [place] blue conc <0.10 10 Goosefoot, [place] Class 0/1 class 10 Go[place]foot, [place] Conc 0.10 10 Maple feaf [facility] p.Class 0 class 10 Maple leaf [facility] p. Conc <0.10 10 Mucor Class 0 class 10 Mucor Conc <0.10 10 Mugwort Class 0 class 10 Mugwort Conc <0.10 10 Penicillium chrysogenum Class 0 class 10 Penicillium chysogenum Conc <0.10 10 Commom Pigweed Class 0 class 10 Common Pigweed Conc <0.10 10 Sheep [place] Class 0/1 class 10 Sheep [place] Conc 0.33 10 [place] Tree Class 0 class 10 [place] Tree Conc <0.10 10 [place] Class 0 class 10 [place] Conc <0.10 10 Enola Class 0 class 10 Enola Conc <0.10 10 [place] Class 1 class 10 [place] Conc 0.64 10 Laboratory test 05/07/2016 Throat Culture Microbiology res 11 finding <SEE NOTE> Laboratory test 06/12/2015 TSH 0.60 uIU/mL 0.35-4.94 12 finding Free T4 1.22 ng/dL 0.70-1.48 12 Lipid Treatment 06/07/2015 Cholesterol 184 mg/dL 50-199 13 Triglycerides 43 mg/dL 30-200 13 HDL 72 mg/dL 35-85 13, 14 Chol/ HDL Ratio 2.6 ratio Low 3.7-5.6 13 VLDL 9 mg/dL 2-29 13 LDL (Calc) 103 mg/dL High 20-99 13, 15 Alt 10 U/L 3-42 13 Ast 13 U/L 8-42 13 CBC With Auto Diff 06/07/2015 WBC 8.2 K/uL 4.1-11.0 13 RBC 4.77 M/uL 4.00-5.40 13 Hemoglobin 14.0 gm/dL 12.0-16.0 13 Hematocrit 42.5 % 36.0-47.0 13 MCV 89.1 fL 80.0-97.0 13 MCH 29.3 pg 27.0-32.0 13 MCHC 32.9 g/dL 32.0-36.0 13 RDW 13.1 % 11.5-14.5 13 PLT Count 336 K/ul 140-400 13 Neutrophil 71.2 % 35.0-75.0 13 Lymphocyte 23.3 % 16.0-52.0 13 Monocyte 4.1 % 2.0-10.0 13 Eosinophil 0.8 % 0.0-5.0 13 Basophil 0.6 % 0.0-4.0 13 Abs Neutrophils 5.8 K/uL 2.1-8.0 13 Abs Lymphocytes 1.9 K/uL 0.8-5.5 13 Abmon 0.3 K/uL 0.1-1.0 13 Abs Eosinophils 0.1 K/uL 0.0-0.5 13 Abs Basophils 0.1 K/uL 0.0-0.3 13 Laboratory test finding 06/07/2015 TSH 0.30 uIU/mL Low 0.35-4.94 13 Comprehensive Metabolic (CMP) 06/07/2015 Sodium 138 mmol/L 134-142 13 Potassium 3.9 mmol/L 3.5-5.2 13 Chloride 103 mmol/L 97-109 13 Carbon Dioxide 27 mmol/L 24-34 13 Glucose 98 mg/dL 70-105 13 BUN 7 mg/dL 6-26 13 Creatinine 0.8 mg/dL 0.5-1.4 13 Calcium 9.5 mg/dL 8.5-10.2 13 Total Protein 7.5 g/dL 6.0-8.0 13 Albumin 4.2 g/dL 3.6-4.9 13 Globulin 3.3 g/dL 2.0-3.5 13 A/G Ratio 1.3 Ratio 1.0-2.2 13 Total Bilirubin 0.4 mg/dL 0.1-1.3 13 Alkaline Phosphatase 30 U/L 24-140 13 Alt 10 U/L 3-42 13 Ast 13 U/L 8-42 13 Anion Gap 12 mmol/L 6-14 13 Dorinda Egfr >60 >60 13, 16 Non Dorinda Egfr >60 >60 13, 17 Laboratory test finding 05/14/2014 Throat Culture Microbiology res 18 <SEE NOTE> Comprehensive Metabolic 04/30/2014 Sodium 139 mmol/L 134-142 19 (CMP) Potassium 3.8 mmol/L 3.5-5.2 19 Chloride 105 mmol/L 97-109 19 Carbon Dioxide 25 mmol/L 24-34 19 Glucose 81 mg/dL 70-105 19 BUN 13 mg/dL 6-26 19 Creatinine 0.9 mg/dL 0.5-1.4 19 Calcium 9.1 mg/dL 8.5-10.2 19 Total Protein 7.1 g/dL 6.0-8.0 19 Albumin 4.2 g/dL 3.6-4.9 19 Globulin 2.9 g/dL 2.0-3.5 19 A/G Ratio 1.4 Ratio 1.0-2.2 19 Total Bilirubin 0.6 mg/dL 0.1-1.3 19 Alkaline Phosphatase 24 U/L 24-140 19 Alt 8 U/L 3-42 19 Ast 14 U/L 8-42 19 Anion Gap 13 mmol/L 6-14 19 Dorinda Egfr >60 >60 19, 20 Non Dorinda Egfr >60 >60 19, 21 Lipid 04/30/2014 Cholesterol 154 mg/dL 50-199 19 Triglycerides 82 mg/dL 30-200 19 HDL 59 mg/dL 35-85 19, 22 Chol/ HDL Ratio 2.6 ratio Low 3.7-5.6 19 VLDL 16 mg/dL 2-29 19 LDL (Calc) 79 mg/dL 20-99 19, 23 Laboratory test finding 04/30/2014 TSH 0.41 uIU/mL 0.34-5.60 19 CBC With Auto Diff 04/30/2014 WBC 6.8 K/uL 4.1-11.0 19 RBC 4.42 M/uL 4.00-5.40 19 Hemoglobin 13.6 gm/dL 12.0-16.0 19 Hematocrit 39.8 % 36.0-47.0 19 MCV 90.1 fL 80.0-97.0 19 MCH 30.9 pg 27.0-32.0 19 MCHC 34.3 g/dL 32.0-36.0 19 RDW 12.8 % 11.5-14.5 19 PLT Count 206 K/ul 140-400 19 Neutrophil 54.8 % 35.0-75.0 19 Lymphocyte 30.8 % 16.0-52.0 19 Monocyte 5.3 % 2.0-10.0 19 Eosinophil 8.4 % High 0.0-5.0 19 Basophil 0.7 % 0.0-4.0 19 Abs Neutrophils 3.7 K/uL 2.1-8.0 19 Abs Lymphocytes 2.1 K/uL 0.8-5.5 19 Abmon 0.4 K/uL 0.1-1.0 19 Abs Eosinophils 0.6 K/uL High 0.0-0.5 19 Abs Basophils 0.0 K/uL 0.0-0.3 19 1 Microbiology results RESULT Normal throat marcello.No beta hemolytic streptococci isolated. 2 Microbiology results RESULT Normal throat marcello.No beta hemolytic streptococci isolated. 3 This sample is drawn by:amie 4 < 1:16 Reference range: < 1:16 INTERPRETIVE INFORMATION: Babesia microti Antibody, IgG Less than 1:16 ........ Negative - No significant level of detectable Babesia IgG antibodies. 1:16 .................. Equivocal - Repeat testing in 10-14 days may be helpful. Greater than 1:16 ..... Positive - IgG antibodies to Babesia detected which may indicate a current or previous infection. Test developed and characteristics determined by [facility]. See Compliance Statement A: [employer] [place]/[facility] 5 <1:20 Reference range: <1:20 INTERPRETIVE INFORMATION: Babesia microti Antibody, IgM Less than 1:20 ........ Negative - No significant level of detectable Babesia IgM antibodies. 1:20 .................. Equivocal - Repeat testing in 10-14 days may be helpful. Greater than 1:20 ..... Positive - IgM antibodies to Babesia detected which may indicate a current or recent infection. Test developed and characteristics determined by [facility]. See Compliance Statement A: [employer] [place]/CS Performed by [facility], [address] [place] [address] www.[facility], Vic Mccoy MD, Lab. Director Unless otherwise specified, testing performed by [facility] [address] [place] [id number] 6 <1:64 Reference range: <1:64 INTERPRETIVE INFORMATION: Ehrlichia Chaffeensis IgG Ab Less than 1:64 ....... Negative: No significant level of Ehrlichia chaffeensis IgG antibody detected. 1:64-1:128 ........... Equivocal: Questionable presence of Ehrlichia chaffeensis IgG antibody detected. Repeat testing in 10-14 days may be helpful. 1:256 or greater ..... Positive: Presence of IgG antibody to Ehrlichia chaffeensis detected, suggestive of current or past infection. Seroconversion between acute and convalescent sera is considered strong evidence of recent infection. The best evidence for infection is a significant change (fourfold difference in titer) on two appropriately timed specimens, where both tests are done in the same laboratory at the same time. Test developed and characteristics determined by [facility]. See Compliance Statement B: [employer] [place]/CS 7 < 1:16 Reference range: < 1:16 INTERPRETIVE INFORMATION: Ehrlichia Chaffeensis IgM Ab Less than 1:16 ....... Negative - No significant level of Ehrlichia chaffeensis IgM antibody detected. 1:16 or greater ...... Positive - Presence of IgM antibody to Ehrlichia chaffeensis detected, suggestive of current or recent infection. While the presence of IgM antibodies suggest current or recent infection, low levels of IgM antibodies may occasionally persist for more than 12 months post-infection. A single IgM result should be interpreted with caution. Test developed and characteristics determined by [facility]. See Compliance Statement B: [employer] [place]/CS Performed by [facility], [address] [place] [address] www.[facility], Vic Mccoy MD, Lab. Director Unless otherwise specified, testing performed by [facility] [address] [place] [id number] 8 <1:80 Reference range: <1:80 INTERPRETIVE INFORMATION: A. phagocytophilum (HGA) Antibody, IgG Less than 1:80 - No significant level of IgG antibodies to A. phagocytophilum detected. Greater than or equal to 1:80 - Suggestive of a recent or past infection with A. phagocytophilum. Test developed and characteristics determined by [facility]. See Compliance Statement B: [facility]/CS 9 < 1:16 Reference range: < 1:16 INTERPRETIVE INFORMATION: A. phagocytophilum (HGA) Antibody, IgM Less than 1:16 - No significant level of IgM antibodies to A. phagocytophilum detected. Greater than or equal to 1:16 - Suggestive of a current or recent infection with A. phagocytophilum. Test developed and characteristics determined by [facility]. See Compliance Statement B: [facility]/CS Performed by [facility], [address] [place] [id number] www.[facility], Vic Mccoy MD, Lab. Director Unless otherwise specified, testing performed by [facility] [address] [place] [id number] 10 This sample is drawn by: FADUMO RUSSO 11 Microbiology results RESULT Normal throat marcello.No beta hemolytic streptococci isolated. 12 This sample is drawn by:amie 13 This sample is drawn by:ERWIN 14 Per NCEP ATP III Guidelines: Results lower than 40 mg/dL are suggestive of increased risk for coronary artery disease. Results > or=to 60 mg/dL are considered a negative risk factor. 15 Per NCEP ATP III Guidelines: Normal Population <130 Patients with medical conditions: CHD/DM Optimal: <100 Borderline high: 130-159 High: 160-189 Very high: >189 16 Concerning GFR Guidelines for Americans: Normal function or mild renal disease, if clinically at risk: >/=60 mL/min Moderately decreased: 30-59 Severely decreased: 15-29 Renal failure: <15 17 Concerning GFR Guidelines: Normal function or mild renal disease, if clinically at risk: >/=60 mL/min Moderately decreased: 30-59 Severely decreased: 15-29 Renal failure: <15 Glomerular Filtration Rate (GFR) is estimated based on the MDRD equation, which assumes a steady state for creatinine as recommended by the National Kidney Disease Education Program in conjunction with the National Institutes of Health and the National Kidney Foundation. Clinical conditions in which it may be necessary to measure GFR by using clearance methods include extremes of age and body size, severe malnutrition or obesity, diseases of skeletal muscle, paraplegia or quadriplegia, vegetarian diet, rapidly changing kidney function, and calculation of the dose of potentially toxic drugs that are excreted by the kidneys. 18 Microbiology results RESULT Normal throat marcello.No beta hemolytic streptococci isolated. 19 This sample is drawn by:jk Fastin hours This sample is drawn by:jk Fastin hours This sample is drawn by:jk Fastin hours This sample is drawn by :jk Fastin hours 20 Concerning GFR Guidelines for Americans: Normal function or mild renal disease, if clinically at risk: >/=60 mL/min Moderately decreased: 30-59 Severely decreased: 15-29 Renal failure: <15 21 Concerning GFR Guidelines: Normal function or mild renal disease, if clinically at risk: >/=60 mL/min Moderately decreased: 30-59 Severely decreased: 15-29 Renal failure: <15 Glomerular Filtration Rate (GFR) is estimated based on the MDRD equation, which assumes a steady state for creatinine as recommended by the National Kidney Disease Education Program in conjunction with the National Institutes of Health and the National Kidney Foundation. Clinical conditions in which it may be necessary to measure GFR by using clearance methods include extremes of age and body size, severe malnutrition or obesity, diseases of skeletal muscle, paraplegia or quadriplegia, vegetarian diet, rapidly changing kidney function, and calculation of the dose of potentially toxic drugs that are excreted by the kidneys. 22 Per NCEP ATP III Guidelines: Results lower than 40 mg/dL are suggestive of increased risk for coronary artery disease. Results > or=to 60 mg/dL are considered a negative risk factor. 23 Per NCEP ATP III Guidelines: Normal Population <130 Patients with medical conditions: CHD/DM Optimal: <100 Borderline high: 130-159 High: 160-189 Very high: >189 Procedures Date CPT Code Description Status 02/05/2017 31586 Unlisted Procedure, Allergy/Clinical Immunologic Completed 01/29/2017 03522 Tympanometry Completed 01/04/2017 77530 Tympanometry Completed 01/04/2017 20326 Cat Scan Maxillofacial W/O Contrast Completed 01/04/2017 69006 Cat Scan Maxillofacial W/O Contrast Completed 01/01/2017 57376 Unlisted Procedure, Allergy/Clinical Immunologic Completed 11/13/2016 77852 Tympanometry Completed 09/14/2016 96896 Measure Blood Oxygen Level Single Determination Completed 09/14/2016 12359 Airway Inhalation Treatment Completed 04/30/2014 80539 Screening Hearing Test Completed 04/16/2014 68443 Spirometry /PFT With And Without Bronchodialator Completed (Bronchospasm) 03/13/2014 85288 Airway Inhalation Treatment Completed Encounters Type Date Location Provider CPT E/M Dx Office Visit 03/08/2017 2:00[place] [address] J02.9 B37.9 Office Visit 01/29/2017 2:20p [place] [address] J33.0 H65.23 J30.1 J32.8 J45.40 Office Visit 01/27/2017 1:45[place] [address] J02.9 G51.0 Office Visit 01/04/2017 12:15p Edward Escamilla MD CT Scan [facility] Office 579[address] J30.1 Office Visit 01/04/2017 12:30[place] [address] H65.23 J32.8 J33.0 J45.40 J30.1 Office Visit 12/17/2016 4:45[place] [address] J45.51 Office Visit 12/16/2016 8:45[place] [address] H65.23 J32.8 J33.0 J30.1 J45.40 Office Visit 12/14/2016 1:30[place] [address] J45.41 Office Visit 11/13/2016 8:00a [place] [address] H65.23 J32.8 J33.0 J30.1 J45.40 Office Visit 10/29/2016 3:20p [place] [address] J33.0 J32.8 H65.23 J30.1 Office Visit 10/08/2016 12:45[place] [address] J33.0 J32.8 H65.23 T78.40XA T78.40xA Office Visit 09/14/2016 12:15[place] [address] J30.89 J45.40 R06.02 J20.9 Office Visit 05/07/2016 11:45[place] [address] J01.90 Office Visit 06/07/2015 9:30[place] [address] Z00.00 Z23 J30.89 J45.20 Office Visit 10/22/2014 4:00[place] [address] 535.00 Office Visit 06/05/2014 11:30[place] [address] 477.8 Office Visit 05/14/2014 12:15[place] [address] 462 Office Visit 04/30/2014 9:15[place] [address] V70.0 V77.0 V77.91 V81.1 493.00 V72.19 Office Visit 04/16/2014 10:45a Casandra Amin, KELLI 08958 786.2 493.00 Office Visit 03/13/2014 11:30[place] [address] 466.0 847.2 V04.81 Plan of Care Future Appointment(s):07/07/2017 8:00 am - Rox Gomez PA at Edward Escamilla MD04/30/2017 10:20 am - Rox Gomez PA at Edward Escamilla MD04/07 - Rox Gomez PAJ30.1 Allergic rhinitis due to pollenComments:In vitro allergy testing was completed and the patient started on SLIT recently. She admits that shedoes not this consistently but is going to try to get more consistent. Patient with sensitivitiesto trees, grasses, and weeds. She also has sensitivities to cat and dog, dust mites.J33.0 Polyp of nasal cavityComments:Patient with a long history of nasal and sinus polyps. 2 surgeries were completed through another provider in 2013 and 2014, her last CT sinus scan was in 2014, prior to her second surgery, this surgery was 11 months after the first. Patient had polyp surgery with Dr. Lawrence 02/08/17 and is followingup with him.Follow up:3 months SLIT/ears/sinus/asthma with pftsH65.23 Chronic serous otitis media, bilateralComments:today with acute right sided otitis media. Treating with augmentin and medrol through urgent care.Will call if symptoms persist.J32.8 Other chronic sinusitisComments:Patient with history of 2 sinus surgeries (11 months apart, 2013 and 2014) to remove polyps in the sinuses as well and nasal passages bilaterally. Recent sinus/polyp surgery with Dr. Lawrence 02/08/17 andis following up with him.J45.40 Moderate persistent asthma, uncomplicatedComments:stable. We will plan to complete PFT at next visit in 3 months as she is on prednisone and has not been taking her advair.
[2017-05-04 10:43] VITALS: BP 111/62
--- NOTE | 2017-05-04 11:43 | ED ---
Throat Pain/Nasal Congestion - HPI Summary HPI Summary: 31 yr old female with the complaint of sinus pressure and congestion; onset a week ago, and also has bilateral ear pain for two days. She states she gets recurrent OM and sinus infections. She sees ENT Dr Escamilla in [facility]. The patient wants to be covered for yeast infection as well since antibiotics cause this problem. She was last seen by Dr Escamilla last month for Right OM. - History of Current Complaint Chief Complaint: UCEar Time Seen by Provider: 05/04/17 11:30 - Allergies/Home Medications Allergies/Adverse Reactions: Allergies Allergy/AdvReac Type Severity Reaction Status Date / Time environmental Allergy Eyes Uncoded 05/04/17 10:35 Itchy/Swollen/Red/Watery PMH/Surg Hx/FS Hx/Imm Hx Endocrine/Hematology History: Denies: Hx Thyroid Disease Cardiovascular History: Denies: Hx Hypertension Respiratory History: Reports: Hx Asthma EENT History: Reports: Other - otitis media, sinusitis - Surgical History Surgery Procedure, Year, and Place: Sinus surgery and fixed a deviated septum 2014, sinus surgery July 2015, sinus 02/2017 Infectious Disease History: No Infectious Disease History: Denies: Hx Clostridium Difficile, Hx Hepatitis, Hx Human Immunodeficiency Virus (HIV), Hx of Known/Suspected MRSA, Hx Shingles, Hx Tuberculosis, Hx Known/ Suspected VRE, Hx Known/Suspected VRSA, History Other Infectious Disease, Traveled Outside the in Last 30 Days - Family History Known Family History: Negative: Cardiac Disease, Hypertension, Diabetes, Respiratory Disease - Social History Alcohol Use: Occasionally Substance Use Type: Reports: None Smoking Status (MU): Former Smoker Length of Time of Smoking/Using Tobacco: 3 years Have You Smoked in the Last Year: No Review of Systems Constitutional: Negative Positive: Ear Ache, Nasal Discharge All Other Systems Reviewed And Are Negative: Yes Physical Exam Triage Information Reviewed: Yes Vital Signs On Initial Exam: Initial Vitals Temp Pulse Resp BP Pulse Ox 97.8 F 72 16 111/62 98 05/04/17 10:37 05/04/17 10:37 05/04/17 10:37 05/04/17 10:37 05/04/17 10:37 Vital Signs Reviewed: Yes Appearance: Positive: Well-Appearing, No Pain Distress Skin: Positive: Warm, Skin Color Reflects Adequate Perfusion Head/Face: Positive: Normal Head/Face Inspection Eyes: Positive: EOMI ENT: Positive: Nasal congestion, TM dull - right and left, TM red - right, Sinus tenderness Respiratory/Lung Sounds: Positive: Clear to Auscultation, Breath Sounds Present Cardiovascular: Positive: RRR. Negative: Murmur Abdomen Description: Positive: Nontender Musculoskeletal: Positive: Strength/ROM Intact Neurological: Positive: Sensory/Motor Intact, Alert, Oriented to Person Place, Time, CN Intact II-III Psychiatric: Positive: Normal - [place] Coma Scale Best Eye Response: 4 - Spontaneous Best Motor Response: 6 - Obeys Commands Best Verbal Response: 5 - Oriented Diagnostics - Vital Signs Vital Signs Temp Pulse Resp BP Pulse Ox 05/04/17 10:37 97.8 F 72 16 111/62 98 - Laboratory Lab Statement: Any lab studies that have been ordered have been reviewed, and results considered in the medical decision making process. EENT Course/Dx - Course Course Of Treatment: 31 yr old female with Otitis media and sinusitis. Rx with Augmentin. - Diagnoses Provider Diagnoses: Sinusitis, Otitis media Discharge - Discharge Plan Condition: Good Disposition: HOME Prescriptions: Amoxicillin/Clavulanate TAB* [Augmentin TAB 875*] 875 mg PO BID #20 tab Fluconazole [Diflucan 150 MG (NF)] 150 mg PO ONCE #1 tab Patient Education Materials: Sinusitis (ED), Otitis Media (ED) Referrals: Daisha Burns NP [Primary Care Provider] - 2 Days
== END 2017-05-04 11:54 | disposition home or self-care (01) ==
LOC: UCCORT 10:24
DX: J32.9 Chronic sinusitis, unspecified (principal); H66.93 Otitis media, unspecified, bilateral; J45.909 Unspecified asthma, uncomplicated; Z87.891 Personal history of nicotine dependence
CPT/HCPCS: 99212; G0463

== ENCOUNTER 2018-10-09 13:50 | Emergency (ER) | payer OTHER ==
--- OUTSIDE RECORDS SUMMARY | 2018-10-09 13:59 | XMS REPORT | Continuity of Care Document ---
:1985 External Reference #:[id number] Author Name Yessy Griffin Care Team Providers Name Role Phone Luis Felipe Burns MD Care Team Information Advanced Quality Engineer Unavailable Luis Felipe Burns MD Primary Care Physician Unavailable Payers Date Identification Numbers Payment Provider Subscriber Expires: 2015 Policy Number: [id number] Hector Brunson PayID: [id number] [place] [address] Expires: 2016 Policy Number: [id number] Medicaid Sg Brunson PayID: [id number] [address] [place] [id number] Policy Number: [id number] Hector Brunson PayID: [id number] [place] [address] Family History Date Family Member(s) Observation Comments Father Asthma And Allergies Father nasal polyps Mother Diabetes First Brother Asthma And Allergies Social History Type Date Description Comments Sex Unknown Marital Status Occupation [employer] Occupation Advertising Sales Assistant Tobacco Use Start: Unknown End: Used To Smoke Cigarettes But Unknown Quit. ETOH Use Current Alcohol Use - 1-3 Days A Week. Recreational Drug Use Used Recreational Drugs In The Past Allergies, Adverse Reactions, Alerts Description No Known Drug Allergies Medications Active Medications SIG Qnty Indications Ordering Provider Date Omeprazole 1 by mouth Hernan Denson M.D. 07/17/[address] DR Ernst Q6H prn For Unknown 06/06/2016 200mg Tablets Pain Advair Diskus Every Day Unknown 02/01/2016 100-50mcg/Dose Aerosol Ortho Tri-Cyclen 1 by mouth Unknown Tablets daily Montelukast Sodium 1 by mouth Unknown 10mg every day Tablets History Medications Tobramycin-Dexamethasone 5 drops twice 1units Hernan Cabezas, 08/08/2018 - 0.3-0.1% daily affected M.D. 09/14/2018 Suspension ear for 1 week, - eye drops for ears. Prednisone 1 by mouth every 10tabs Hernan Cabezas, 07/18/2018 - 10mg Tablets morning M.D. 08/07/2018 Amoxicillin twice a day 1 14tabs Hernan Cabezas, 07/18/2018 - 875mg Tablets week M.D. 08/07/2018 Percocet 1-2 by mouth four 20tabs Hernan Cabezas, 06/09/2018 - 5-325mg Tablets times a day as M.D. 07/18/2018 needed for pain Cephalexin 1 by mouth three 30caps Hernan Cabezas, 02/18/2018 - 500mg Capsules times a day M.D. 04/13/2018 Prednisone 1 by mouth every 15tabs Hernan Cabezas, 02/18/2018 - 10mg Tablets morning M.D. 04/13/2018 Prednisone 1 by mouth every 14tabs Hernan Cabezas, 12/29/2017 - 10mg Tablets morning M.D. 02/08/2018 Prednisone 1 by mouth every 5tabs Hernan Cabezas, 09/23/2017 - 10mg Tablets morning M.D. 12/28/2017 Ciprodex 5 drops twice a 1bottle Hernan Cabezas, 08/24/2017 - 0.3-0.1% Suspension day x 10 days M.D. 09/22/2017 Left Ear Dexamethasone 2 by mouth for 2 4tabs Hernan Cabezas, 08/24/2017 - 4mg Tablets days M.D. 09/22/2017 Cefdinir one tab twice a 20caps Hernan Cabezas, 08/24/2017 - 300mg Capsules day 10 days M.D. 09/22/2017 Cefdinir one tab twice a 20caps Hernan Cabezas, 07/19/2017 - 300mg Capsules day 10 days M.D. 08/24/2017 Prednisone 1 by mouth every 4tabs Hernan Cabezas, 07/19/2017 - 20mg Tablets day M.D. 08/24/2017 Ciprodex 5 drops twice a 1bottle Hernan Cabezas, 07/16/2017 - 0.3-0.1% Suspension day x 10 days M.D. 08/24/2017 right ear Amoxicillin twice a day 1 14tabs Hernan Cabezas, 07/16/2017 - 875mg Tablets week M.D. 07/18/2017 Nystatin 1 teaspoon by 200ml Hernan Cabezas, 06/21/2017 - [id number]/ML Suspension mouth four times M.D. 07/18/2017 a day x 7 days hold it in the mouth, swish and swallow Diflucan take 2 pills 2tabs Hernan Cabezas, 06/21/2017 - 100mg Tablets after finishing M.D. 08/24/2017 antibiotics Percocet 1-2 by mouth four 30tabs Hernan Cabezas, 06/16/2017 - 5-325mg Tablets times a day as M.D. 07/18/2017 needed for pain Ibuprofen 30 milliliters by 473ml Hernan Cabezas, 06/10/2017 - 100mg/5ML Suspension mouth every 6 M.D. 07/18/2017 hours as needed pain Dexamethasone 2 by mouth for 2 4tabs Hernan Cabezas, 06/10/2017 - 4mg Tablets days M.D. 08/24/2017 Prednisone 1 by mouth every 7tabs Hernan Cabezas, 06/01/2017 - 20mg Tablets day M.D. 07/18/2017 Cephalexin 1 by mouth three 30caps Hernan Cabezas, 06/01/2017 - 500mg Capsules times a day M.D. 07/18/2017 Percocet 1-2 by mouth four 18tabs Hernan Cabezas, 05/07/2017 - 5-325mg Tablets times a day as M.D. 05/31/2017 needed for pain Dexamethasone one tab daily for 5tabs Hernan Cabezas, 05/07/2017 - 4mg Tablets 5 days M.D. 05/31/2017 Dexamethasone one tab daily for 7tabs Hernan Cabezas, 06/18/2016 - 4mg Tablets 7 days M.D. 05/07/2017 Augmentin Twice Daily 20tabs Unknown 06/06/2016 - 500-125mg Tablets 06/17/2016 Diflucan 1 by mouth x 2 1 2tabs Hernan Cabezas, 04/29/2016 - 150mg Tablets before and 1 M.D. 05/07/2017 after antibiotic treatment Prednisone 1 by mouth every 5tabs Hernan Cabezas, 02/07/2016 - 20mg Tablets day M.D. 07/18/2016 Percocet 1-2 by mouth four 30tabs Hernan Cabezas, 07/18/2015 - 5-325mg Tablets times a day as M.D. 09/22/2015 needed for pain Dexamethasone one tab daily for 5tabs Hernan Cabezas, 07/18/2015 - 4mg Tablets 5 days M.D. 07/23/2015 Diflucan 1 by mouth x 2 - 2tabs Hernan Cabezas, 07/09/2015 - 150mg Tablets 1 before and 1 M.D. 07/24/2015 after antibiotic treatment Prednisone 1 by mouth every 10tabs Hernan Cabezas, 05/29/2015 - 10mg Tablets morning M.D. 07/01/2015 Amoxicillin twice a day 1 14tabs Hernan Cabezas, 05/29/2015 - 875mg Tablets week M.D. 07/01/2015 Prednisone 2 by mouth every 15tabs Hernan Cabezas, 11/26/2014 - 10mg Tablets morning for the M.D. 12/26/2014 first five days and one by morning every day for the next 5 days. Loratadine 1 by mouth every 90tabs Hernan Cabezas, 09/26/2014 - 10mg Tablets day M.D. 09/22/2017 Prednisone 1 by mouth every 3tabs Hernan Cabezas, 09/24/2014 - 20mg Tablets day M.D. 11/25/2014 Fluticasone Propionate 2 sprays both 3units Hernan Cabezas, 09/10/2014 - 50mcg/Act nostrils every M.D. 09/14/2018 Suspension day Desloratadine 1 by mouth every 30tabs Hernan Cabezas, 08/23/2014 - 5mg Tablets Dispers day M.D. 11/25/2014 Percocet 2 by mouth four 40tabs Hernan Cabezas, 08/17/2014 - 5-325mg Tablets times a day as M.D. 09/23/2014 needed for pain Diflucan 1 by mouth x 2 1 2tabs Hernan Cabezas, 07/10/2014 - 150mg Tablets before and 1 M.D. 09/23/2014 after antibiotic treatment Levaquin 1 by mouth every 10tabs Hernan Cabezas, 07/04/2014 - 500mg Tablets day for 10days M.D. 07/17/2014 Prednisone 1 by mouth every 5tabs Hernan Cabezas, 07/04/2014 - 20mg Tablets day for 5 days M.D. 07/17/2014 Clindamycin HCL 1 by mouth twice 20caps Hernan Cabezas, 07/04/2014 - 300mg Capsules a day for 10 days M.D. 09/23/2014 Zyrtec Unknown - 10/02/2015 Aleve D Unknown - 09/22/2015 Advair HFA 2 Puffs Daily Unknown - Aerosol 07/18/2018 Omeprazole 1 by mouth every Unknown - 40mg Capsules DR day 09/22/2015 Nucala Unknown - 100mg Solution Rec 02/06/2016 Medications Administered in Office Medication SIG Qnty Indications Ordering Provider Date Dexamethasone Hernan Cabezas M.D. 05/07/2017 Injection Injection Ceftriaxone Sodium Per Hernan Caebzas M.D. 05/07/2017 250 MG (Rocephin) Injection Vital Signs Date Vital Result Comment 09/15/2018 4:17pm Weight 128.00 lb Height 60 inches 5'0" BMI (Body Mass Index) 25.0 kg/m2 BP Systolic 115 mmHg BP Diastolic 69 mmHg Heart Rate 72 /min O2 % BldC Oximetry 97 % Body Temperature 98.4 F Pain Level 0 08/08/2018 9:50am Weight 134.00 lb Height 60 inches 5'0" BMI (Body Mass Index) 26.2 kg/m2 BP Systolic 100 mmHg BP Diastolic 66 mmHg Heart Rate 88 /min O2 % BldC Oximetry 96 % Body Temperature 98.4 F Pain Level 0 07/18/2018 1:55pm Weight 137.00 lb Height 60 inches 5'0" BMI (Body Mass Index) 26.8 kg/m2 BP Systolic 108 mmHg BP Diastolic 74 mmHg Heart Rate 94 /min O2 % BldC Oximetry 97 % Body Temperature 97.9 F Pain Level 8 06/16/2018 3:49pm Weight 135.00 lb Height 60 inches 5'0" BMI (Body Mass Index) 26.4 kg/m2 BP Systolic 114 mmHg BP Diastolic 75 mmHg Heart Rate 83 /min O2 % BldC Oximetry 97 % Body Temperature 97.5 F Pain Level 0 04/13/2018 10:14am Weight 132.00 lb Height 60 inches 5'0" BMI (Body Mass Index) 25.8 kg/m2 BP Systolic 111 mmHg BP Diastolic 74 mmHg Heart Rate 70 /min O2 % BldC Oximetry 100 % Body Temperature 98.3 F Pain Level 0 02/18/2018 9:35am Weight 128.00 lb Height 60 inches 5'0" BMI (Body Mass Index) 25.0 kg/m2 BP Systolic 115 mmHg BP Diastolic 76 mmHg Heart Rate 77 /min O2 % BldC Oximetry 98 % Body Temperature 97.5 F Pain Level 5 02/09/2018 8:33am Weight 128.00 lb Height 60 inches 5'0" BMI (Body Mass Index) 25.0 kg/m2 BP Systolic 98 mmHg BP Diastolic 62 mmHg Heart Rate 79 /min O2 % BldC Oximetry 98 % Body Temperature 98.1 F Pain Level 0 12/29/2017 3:55pm Weight 127.00 lb Height 60 inches 5'0" BMI (Body Mass Index) 24.8 kg/m2 BP Systolic 108 mmHg BP Diastolic 68 mmHg Heart Rate 77 /min O2 % BldC Oximetry 95 % Body Temperature 98.1 F Pain Level 0 09/23/2017 2:14pm Weight 126.00 lb Height 60 inches 5'0" BMI (Body Mass Index) 24.6 kg/m2 BP Systolic 104 mmHg BP Diastolic 68 mmHg Heart Rate 79 /min O2 % BldC Oximetry 96 % Body Temperature 98.1 F Pain Level 0 08/24/2017 1:33pm Weight 130.00 lb Height 60 inches 5'0" BMI (Body Mass Index) 25.4 kg/m2 BP Systolic 107 mmHg BP Diastolic 74 mmHg Heart Rate 71 /min O2 % BldC Oximetry 99 % Body Temperature 98.3 F Pain Level 6 left ear 07/19/2017 3:49pm Weight 127.00 lb Height 60 inches 5'0" BMI (Body Mass Index) 24.8 kg/m2 BP Systolic 114 mmHg BP Diastolic 71 mmHg Heart Rate 86 /min O2 % BldC Oximetry 97 % Body Temperature 98.2 F Pain Level 0 06/21/2017 11:16am Weight 131.00 lb Height 60 inches 5'0" BMI (Body Mass Index) 25.6 kg/m2 BP Systolic 115 mmHg BP Diastolic 78 mmHg Heart Rate 85 /min O2 % BldC Oximetry 99 % Body Temperature 98.5 F Pain Level 8 throat 06/01/2017 5:42pm Weight 131.00 lb Height 60 inches 5'0" BMI (Body Mass Index) 25.6 kg/m2 BP Systolic 100 mmHg BP Diastolic 67 mmHg Heart Rate 76 /min O2 % BldC Oximetry 97 % Body Temperature 98.4 F Pain Level 0 05/07/2017 10:06am Weight 137.12 lb Height 60 inches 5'0" BMI (Body Mass Index) 26.8 kg/m2 BP Systolic 101 mmHg BP Diastolic 65 mmHg Heart Rate 73 /min O2 % BldC Oximetry 98 % Body Temperature 97.0 F Pain Level 10 both ears left worse than right 06/18/2016 10:20am Weight 129.00 lb Height 60 inches 5'0" BMI (Body Mass Index) 25.2 kg/m2 BP Systolic 104 mmHg BP Diastolic 64 mmHg Heart Rate 84 /min O2 % BldC Oximetry 98 % Body Temperature 97.9 F Pain Level 0 03/25/2016 10:24am Weight 131.00 lb Height 60 inches 5'0" BMI (Body Mass Index) 25.6 kg/m2 BP Systolic 108 mmHg BP Diastolic 66 mmHg Heart Rate 71 /min O2 % BldC Oximetry 99 % Body Temperature 98.2 F 02/14/2016 4:18pm Weight 129.00 lb Height 60 inches 5'0" BMI (Body Mass Index) 25.2 kg/m2 Heart Rate 86 /min O2 % BldC Oximetry 98 % Body Temperature 98.3 F 02/07/2016 4:17pm Weight 130.00 lb Height 60 inches 5'0" BMI (Body Mass Index) 25.4 kg/m2 BP Systolic 116 mmHg BP Diastolic 62 mmHg Heart Rate 77 /min O2 % BldC Oximetry 97 % Body Temperature 99.2 F 12/24/2015 10:26am Weight 126.00 lb Height 60 inches 5'0" BMI (Body Mass Index) 24.6 kg/m2 BP Systolic 106 mmHg BP Diastolic 68 mmHg Heart Rate 74 /min O2 % BldC Oximetry 98 % Body Temperature 97.8 F 09/23/2015 9:38am Weight 125.00 lb Height 60 inches 5'0" BMI (Body Mass Index) 24.4 kg/m2 BP Systolic 112 mmHg BP Diastolic 62 mmHg Heart Rate 66 /min O2 % BldC Oximetry 99 % Body Temperature 97.7 F 07/24/2015 2:04pm Weight 120.00 lb Height 60 inches 5'0" BMI (Body Mass Index) 23.4 kg/m2 BP Systolic 100 mmHg BP Diastolic 60 mmHg Heart Rate 73 /min O2 % BldC Oximetry 98 % Body Temperature 98.3 F 07/03/2015 9:32am Weight 120.00 lb Height 60 inches 5'0" BMI (Body Mass Index) 23.4 kg/m2 Body Temperature 98.4 F 05/29/2015 9:23am Weight 124.00 lb Height 60 inches 5'0" BMI (Body Mass Index) 24.2 kg/m2 BP Systolic 96 mmHg BP Diastolic 60 mmHg Heart Rate 68 /min O2 % BldC Oximetry 99 % Body Temperature 98.8 F Pain Level 0 04/01/2015 9:02am Weight 121.00 lb Height 60 inches 5'0" BMI (Body Mass Index) 23.6 kg/m2 BP Systolic 104 mmHg BP Diastolic 72 mmHg Heart Rate 68 /min O2 % BldC Oximetry 98 % Body Temperature 97.4 F 12/27/2014 10:25am Weight 111.00 lb Height 60 inches 5'0" BMI (Body Mass Index) 21.7 kg/m2 Body Temperature 98.3 F 11/26/2014 10:16am Weight 114.00 lb Height 60 inches 5'0" BMI (Body Mass Index) 22.3 kg/m2 BP Systolic 106 mmHg BP Diastolic 58 mmHg Heart Rate 59 /min O2 % BldC Oximetry 97 % Body Temperature 97.9 F 09/24/2014 11:40am Weight 114.00 lb Height 60 inches 5'0" BMI (Body Mass Index) 22.3 kg/m2 BP Systolic 104 mmHg BP Diastolic 62 mmHg Heart Rate 61 /min O2 % BldC Oximetry 94 % Body Temperature 97.8 F 08/23/2014 10:08am Weight 115.00 lb Height 60 inches 5'0" BMI (Body Mass Index) 22.5 kg/m2 BP Systolic 100 mmHg BP Diastolic 66 mmHg Heart Rate 78 /min O2 % BldC Oximetry 99 % Body Temperature 98.0 F 07/18/2014 4:24pm Weight 116.00 lb Height 60 inches 5'0" BMI (Body Mass Index) 22.7 kg/m2 BP Systolic 100 mmHg BP Diastolic 66 mmHg Body Temperature 99.0 F 07/04/2014 10:53am Weight 116.38 lb Height 60 inches 5'0" BMI (Body Mass Index) 22.7 kg/m2 BP Systolic 118 mmHg BP Diastolic 68 mmHg Heart Rate 87 /min O2 % BldC Oximetry 99 % Body Temperature 99.0 F Results Test Date Facility Test Result H/L Range Note Laboratory test 06/16/2017 [facility] Surgical SEE RESULT [address] [address] [phone] Surgical 08/17/2014 [facility] Nature of Left Ethmoid N 2 Pathology, Level (037)- - Specimen Sin <SEE III NOTE> Text Diagnosis Mucus with infla <SEE NOTE> N 3 Gross Pathology Received in form <SEE NOTE> N 4 Final Diagnosis 229.8 N Clinical History 1 - 2. Polyp N Comments Comment N 1 SEE RESULT BELOW Name: SG BRUNSON : [address]: Hernan Cabezas MD Acct: [id number] Unit: [id number] AGE: 31 Location: [facility] Re06/16/17 SEX: F Status: REG REF SPEC: [id number] KANE: 06/16/17-[address] [facility] [address]: Hernan Cabezas MD REQ: [id number] RECD: 06/16/17-1139 STATUS: SOUT _ ORDERED: LEVEL 3/2 COMMENTS: [id number] FINAL DIAGNOSIS 1. Oropharynx, right tonsil, tonsillectomy: -- Tonsil tissue with follicular lymphoid hyperplasia. 2. Oropharynx, left tonsil, tonsillectomy: -- Tonsil tissue with follicular lymphoid hyperplasia. CLINICAL HISTORY No history given GROSS DESCRIPTION 1. The specimen is received in formalin labeled, Right Tonsil, and consists of a 2.3 x 1.5 x 1.2 cm hickman-pink ovoid cerebriform and focally cauterized tonsil. The cut surface is glistening hickman-pink with normal crypts. The specimen is inked, serially sectioned and access representative sections are submitted in one cassette. 2. The specimen is received in formalin labeled, Left Tonsil, and consists of a 2.5 x 1.5 x 1.4 cm hickman-pink ovoid cerebriform and focally cauterized tonsil with scant adherent red-brown blood clot. The cut surface is glistening hickman-pink with normal crypts. The specimen is inked, serially sectioned and access representative sections are submitted in one cassette. Signed (signature on file) Eder Fischer MD 1549 END OF REPORT * ML=Testing performed at [facility] DEPARTMENT OF PATHOLOGY, [address] [place] [address] Eder Fischer M.D. Director [facility] # [id number] 2 Left Ethmoid Sinus Polyp 3 Mucus with inflammatory cells; respiratory tissue is not identified. 4 Received in formalin labeled with the patient's name and the site as Left Ethmoid Sinus Polyp , are multiple fragments of hickman tissue measuring 1.1 x 0.9 x 0.3 cm in aggregate. The entire specimen is submitted in 1 cassette(s) labeled 2A . /cs Procedures Date Code Description Status 06/09/2018 30161 Tympanostomy, Gen. Anesth. Completed 06/09/2018 11874 Stereotactic Computer-Assisted, Cranial, Extradural Completed 06/09/2018 75091 Nasal/Sinus Endosc.W.Explor. Completed 06/09/2018 98570 Nasal/Sinus Endosc.W.Eth.Rem Tiss Completed 06/09/2018 00604 Nasal/Sinus Endoscopy Inc Sphenoidotomy W/Removal Tissue Completed From [facility] 06/09/2018 98553 Submucous Resect.Turb.Par Or Comp Completed 06/09/2018 27774 Anesthesia, Nose & Accessory Sinus Surgery Not Otherwise Completed Spec 04/13/2018 47261 Nasal Endoscopy, Diag. Completed 04/06/2018 51299 Cat Scan Maxillofacial W/O Contrast,computed tomography Completed 04/06/2018 64757 Cat Scan Maxillofacial W/O Contrast,computed tomography Completed 04/06/2018 37653 Cat Scan Maxillofacial W/O Contrast,computed tomography Completed 02/09/2018 98460 Nasal Endoscopy, Diag. Completed 01/13/2018 04910 Audiometry, Comprehensive Completed 01/13/2018 03206 Tympanometry Completed 12/29/2017 84833 Nasal Endoscopy, Diag. Completed 09/23/2017 76818 Nasal Endoscopy, Diag. Completed 06/16/2017 41009 Tympanostomy, Gen. Anesth. Completed 06/16/2017 50347 T & A, Age 12 Or Over Completed 06/16/2017 48606 Anesthesia, Intraoral Surgery Not Otherwise Spec Completed 06/01/2017 54079 Nasal Endoscopy, Diag. Completed 05/07/2017 71274 Therapeutic, Prophylactic Or Diagnostic Injection Subq/Im Completed 05/07/2017 18302 Nasal Endoscopy, Diag. Completed 07/17/2016 50923 Nasal Endoscopy, Diag. Completed 06/18/2016 26269 Nasal Endoscopy, Diag. Completed 06/18/2016 00975 Tympanometry Completed 03/25/2016 38722 Nasal Endoscopy, Diag. Completed 02/14/2016 36539 Nasal Endoscopy, Diag. Completed 02/07/2016 36207 Nasal Endoscopy, Diag. Completed 12/24/2015 17745 Nasal Endoscopy, Diag. Completed 07/18/2015 65937 Anesthesia, Nose & Accessory Sinus Surgery Not Otherwise Completed Spec 07/18/2015 27493 Submucous Resect.Turb.Par Or Comp Completed 07/18/2015 54927 Nasal/Sinus Endosc.Surg.W.Ethmoid Completed 07/18/2015 86942 Nasal/Sinus Endosc.W.Max.Antrost. Completed 07/18/2015 27316 Nasal/Sinus Endosc.W.Explor. Completed 07/18/2015 21265 Nasal/Sinus Endosc.Rem.Of Tissue Completed 07/18/2015 69604 Stereotactic Computer-Assisted, Cranial, Extradural Completed 05/29/2015 43537 Nasal Endoscopy, Diag. Completed 04/01/2015 39191 Nasal Endoscopy, Diag. Completed 11/26/2014 71644 Nasal Endoscopy, Diag. Completed 08/17/2014 63362 Stereotactic Computer-Assisted, Cranial, Extradural Completed 08/17/2014 06989 Nasal/Sinus Endosc.Rem.Of Tissue Completed 08/17/2014 15972 Nasal/Sinus Endosc.W.Explor. Completed 08/17/2014 82983 Nasal/Sinus Endosc.W.Max.Antrost. Completed 08/17/2014 21802 Nasal/Sinus Endosc.Surg.W.Ethmoid Completed 08/17/2014 29184 Septoplasty Completed 08/17/2014 83363 Submucous Resect.Turb.Par Or Comp Completed 07/04/2014 84866 Nasal Endoscopy, Diag. Completed Encounters Type Date Location Provider Dx Diagnosis Office Visit 08/08/2018 Main Office Hernan Cabezas M.D. Z96.22 Myringotomy tube(s) 9:45a status H66.92 Otitis media, unspecified, left ear Office Visit 04/13/2018 10:15a Main Office Hernan Cabezas M.D. J33.0 Polyp of nasal cavity J32.9 Chronic sinusitis, unspecified Z96.22 Myringotomy tube(s) status H69.83 Other specified disorders of Eustachian tube, bilateral J31.0 Chronic rhinitis Office Visit 02/18/2018 9:30a Main Office Hernan Cabezas H66.93 Otitis media, M.D. unspecified, bilateral J31.0 Chronic rhinitis Office Visit 02/09/2018 8:30a Main Office Hernan Cabezas M.D. 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 J31.0 Chronic rhinitis J33.0 Polyp of nasal cavity Z96.22 Myringotomy tube(s) status Office Visit 09/23/2017 2:00p Main Office Hernan Cabezas M.D. J31.0 Chronic rhinitis H90.6 Mixed conductive and sensorineural hearing loss, bilateral J34.2 Deviated nasal septum Office Visit 08/24/2017 1:15p Main Office Hernan Cabezas, H66.92 Otitis media, M.D. unspecified, left ear J31.0 Chronic rhinitis Office Visit 06/01/2017 6:15p Main Office Hernan Cabezas M.D. J31.0 Chronic rhinitis J35.1 Hypertrophy of tonsils H66.93 Otitis media, unspecified, bilateral Office Visit 05/07/2017 10:00a Main Office Hernan Cabezas M.D. J33.0 Polyp of nasal cavity J31.0 Chronic rhinitis J35.1 Hypertrophy of tonsils R06.83 Snoring H66.93 Otitis media, unspecified, bilateral Office Visit 07/17/2016 10:00a Main Office Hernan Cabezas M.D. J33.0 Polyp of nasal cavity J31.0 Chronic rhinitis K21.9 Gastro-esophageal reflux disease without esophagitis Office Visit 06/18/2016 10:15a Main Office Hernan Cabezas M.D. J33.0 Polyp of nasal cavity J31.0 Chronic rhinitis H69.83 Other specified disorders of Eustachian tube, bilateral Office Visit 03/25/2016 10:30a Main Office Hernan Cabezas M.D. J33.0 Polyp of nasal cavity J31.0 Chronic rhinitis Office Visit 02/14/2016 4:15p Main Office Hernan Cabezas M.D. J33.0 Polyp of nasal cavity J31.0 Chronic rhinitis Office Visit 02/07/2016 4:15p Main Office Hernan Cabezas M.D. J33.0 Polyp of nasal cavity J31.0 Chronic rhinitis Office Visit 12/24/2015 10:15a Main Office Hernan Cabezas M.D. J33.0 Polyp of nasal cavity J31.0 Chronic rhinitis Office Visit 07/03/2015 9:15a Main Office Hernan Cabezas M.D. J33.0 Polyp of nasal cavity J32.9 Chronic sinusitis, unspecified Office Visit 05/29/2015 9:00a Main Office Hernan Cabezas M.D. J33.0 Polyp of nasal cavity J01.90 Acute sinusitis, unspecified J31.0 Chronic rhinitis Office Visit 04/01/2015 9:00a Main Office Hernan Cabezas M.D. J33.0 Polyp of nasal cavity J32.9 Chronic sinusitis, unspecified Office Visit 12/27/2014 10:30a Main Office Hernan Cabezas M.D. 471.0 Polyp Nasal Cavity 473.9 Sinusitis Chronic Unspec Office Visit 11/26/2014 10:00a Main Office Hernan Cabezas M.D. 471.0 Polyp Nasal Cavity 473.9 Sinusitis Chronic Unspec 781.1 Smell & Taste Sensation Disturbances Office Visit 07/18/2014 4:15p Main Office Leeann Lara, 470 Deviated Nasal [employer]INE DEVELOPMENT ENGINEER Septum 478.0 Hypertrophy Nasal Turbinates 473.9 Sinusitis Chronic Unspec 471.9 Nasal Polyp Unspec Office Visit 07/04/2014 10:30a Main Office Leeann Lara, 470 Deviated Nasal MINE DEVELOPMENT ENGINEER Septum 478.0 Hypertrophy Nasal Turbinates 461.8 Sinusitis Acute Other Plan of Treatment Future Appointment(s):12/20/2018 3:45 pm - Hernan Cabezas M.D. at Main Office
[2018-10-09 14:08] VITALS: BP 110/64
--- NOTE | 2018-10-09 14:36 | UC ---
Ear Complaint HPI - HPI Summary HPI Summary: Bilateral earaches for 5 days. Pt has adult permanent PE tubes in place. She noted drainage out of bot ears today. - History of Current Complaint Chief Complaint: UCEar Stated Complaint: BILATERAL EAR CONCERN Time Seen by Provider: 10/09/18 14:27 Hx Obtained From: Patient Hx Last Menstrual Period: 09/26/18 ?: No Onset/Duration: Gradual Onset Severity Initially: Mild Severity Currently: Mild Pain Intensity: 0 Aggravating Factors: Nothing Alleviating Factors: Nothing Associated Signs/Symptoms: Positive: Discharge, URI Symptoms - Allergies/Home Medications Allergies/Adverse Reactions: Allergies Allergy/AdvReac Type Severity Reaction Status Date / Time environmental Allergy Eyes Uncoded 10/09/18 14:09 Itchy/Swollen/Red/Watery Home Medications: Home Medications Fluticas/Salmet 115/21 HFA(NF) [Advair HFA 115/21 (NF)] 2 puff INH DAILY [History Confirmed 10/09/18] Ibuprofen 600 mg PO ONCE 10/09/18 [History Confirmed 10/09/18] Phenylephrine/Dm/Acetaminop/GG [Sudafed PE Pressure+Pain+Cold] 2 tab PO ONCE 06/28 [History Confirmed 10/09/18] PMH/Surg Hx/FS Hx/Imm Hx Previously Healthy: Yes Respiratory History: Asthma - Surgical History Surgical History: Yes Surgery Procedure, Year, and Place: Sinus surgery and fixed a deviated septum 2014, sinus surgery July 2015, sinus 02/2017, sinus surgery 05/2018, T&A and ear tubes 06/2017 - Family History Known Family History: Negative: Cardiac Disease, Hypertension, Diabetes, Respiratory Disease - Social History Alcohol Use: Weekly Substance Use Type: None Smoking Status (MU): Former Smoker Length of Time of Smoking/Using Tobacco: 3 years Have You Smoked in the Last Year: No When Did the Patient Quit Smoking/Using Tobacco: 2009 - Immunization History Most Recent Influenza Vaccination: 2016 Review of Systems All Other Systems Reviewed And Are Negative: Yes ENT: Positive: Ear Ache, Other - Bilateral ear drainage today Is Patient Immunocompromised?: No Physical Exam Triage Information Reviewed: Yes Appearance: Well-Appearing, No Pain Distress, Well-Nourished Vital Signs: Initial Vital Signs Temp 98.1 F 10/09/18 14:03 Pulse 73 10/09/18 14:03 Resp 18 06/02/19 14:03 BP 110/64 10/09/18 14:03 Pulse Ox 100 10/09/18 14:03 Vital Signs Reviewed: Yes Eyes: Positive: Conjunctiva Clear ENT: Positive: Pharynx normal, Uvula midline, Other - Unable to visualize left TM due to whitish drainage in ear canal, right TM with erythema and whitish drainage in ear canal. Tragus and ear non-tender on palpation. Neck: Positive: Supple, Nontender, No Lymphadenopathy Respiratory: Positive: Lungs clear, Normal breath sounds, No respiratory distress, No accessory muscle use Cardiovascular: Positive: RRR, No Murmur, Pulses Normal, Brisk Capillary Refill Musculoskeletal Exam: Normal Neurological Exam: Normal Psychological Exam: Normal Ear Complaint Course/Dx - Course Course Of Treatment: Comfortable here. I explained to pt PE tubes are doing what they are supposed to do. Advised follow up with Dr. Mosqueda (pt's ENT) in the next 10 days to have drainage removed in order to see TM's better. - Differential Dx/Diagnosis Provider Diagnosis: Bilateral otitis media Discharge - Sign-Out/Discharge Documenting (check all that apply): Patient Departure All imaging exams completed and their final reports reviewed: No Studies - Discharge Plan Condition: Fair Disposition: HOME Prescriptions: Azithromyxin MADELINE (NF) [Z-Madeline (Zithromax) 250 mg tabs #6] 2 tab PO .TODAY, THEN 1 DAILY #6 tab Patient Education Materials: Ear Infection (ED) Referrals: Daisha Burns, ANALOG CIRCUIT DESIGNER [Primary Care Provider] - Additional Instructions: Follow up with Dr. Cabezas within the next 10 days for a recheck or sooner if no improvement. - Billing Disposition and Condition Condition: FAIR Disposition: Home - Attestation Statements Provider Attestation: Per institutional requirements, I have reviewed the chart, however, I was not consulted specifically or made aware of this patient by the midlevel provider. I did not personally evaluate, interact with , or disposition this patient.
== END 2018-10-09 14:43 | disposition home or self-care (01) ==
LOC: UCCORT 13:50
DX: H66.93 Otitis media, unspecified, bilateral (principal); T78.49XA Other allergy, initial encounter; J45.909 Unspecified asthma, uncomplicated; Z87.891 Personal history of nicotine dependence
CPT/HCPCS: 99212; G0463

== ENCOUNTER 2019-06-03 13:32 | Emergency (ER) | payer OTHER ==
--- OUTSIDE RECORDS SUMMARY | 2019-06-03 13:39 | XMS REPORT | Continuity of Care Document ---
:1985 External Reference #:[id number] Author Name Casandra Burns NP Address [address] [place] [address] Problems Active Problems Provider Date Allergic rhinitis due to pollen Casandra Burns NP Onset: 03/13/2014 Social History Type Date Description Comments Sex Unknown Tobacco Use Start: Unknown End: Former Cigarette Smoker 1-5 Unknown Cigarettes Daily Cigarette Use Quit - Age 23 ETOH Use Occasionally consumes alcohol Recreational Drug Use Denies Drug Use Tobacco Use Start: Unknown End: Patient is a former smoker Unknown Allergies, Adverse Reactions, Alerts Description No Known Drug Allergies Medications Active Medications SIG Qnty Indications Ordering Date Provider Omeprazole 1 by mouth twice a 60caps Grant, 05/29/2019 20mg day KELLI Guajardo Capsules Loratadine 1 by mouth every 90caps J30.89 Grant, 05/15/2019 10mg day KELLI Guajardo Capsules Physical Therapy evaluate and treat 12units M54.5 Grant, 03/07/2019 low back pain KELLI Guajardo Misc sacroiliac dysfunction Montelukast Sodium one by mouth every 90tabs R05 Grant, 01/22/2017 at bedtime KELLI Guajardo 10mg Tablets Epinephrine use as directed 1units Edward Escamilla, 01/04/2017 for allergic MD 0.3mg/0.3ML Solution reaction Auto-Inject Auvi-Q use as needed for 2units J30.1 Edward Escamilla, 01/04/2017 0.3mg/0.3ML Anaphylaxis MD Solution Auto-Inject Advair HFA inhale 2 puffs 12units Grant, 12/16/2016 twice a day KELLI Guajardo 115-21mcg/Act Aerosol Ipratropium inhale the 270units Grant, 12/14/2016 [place]/Albuterol contents of one KELLI Guajardo Sulfate vial via nebulizer every 4 to 6 hours 0.5-2.5(3)mg/3ML as needed for Solution shortness of breath / wheezing Nebulizer use as directed 1units Grant, 12/08/2016 Device KELLI Guajardo Fluticasone 2 sprays each nare 1units J30.89 Grant, 06/05/2014 Propionate every day KELLI Guajardo 50mcg/Act Suspension Ventolin HFA 2 puffs every 4 1units J20.9 Grant, 03/13/2014 hrs/prn cough or KELLI Guajardo 108(90Base) mcg/Act wheezing Aerosol Ortho Tri-Cyclen Lo 1 by mouth every Unknown day 0.18/0.215/0.25 mg-25 mcg Tablets Valacyclovir HCL 1 by mouth every Unknown day 500mg Tablets History Medications Loratadine 1 by mouth J30.89 OswaldoCasandra garber, 05/15/2019 - 10mg every day COMPOSITION MOLDER 05/15/2019 Capsules Loratadine 1 by mouth 30tabs J30.89 Casandra Burns, 05/15/2019 - 10mg every day COMPOSITION MOLDER 05/15/2019 Tablets Immunizations CPT Code Status Date Vaccine Lot # [id number] Given 03/01/2019 Influenza Vac, Quadrivalent, Split, 0.5mL Dosage, [id number] Im Use 61033 Given 02/07/2018 Influenza Vac, Quadrivalent, Split, 0.5mL Dosage, [id number] Im Use 54250 Given 02/19/2017 Influenza Vac, Quadrivalent, Split, 0.5mL Dosage, [id number] Im Use 77611 Given 06/07/2015 Tdap (Adacel) Ages 7 And Above Only [id number] 35135 Given 02/13/2015 Influenza Vac, Quadrivalent, Split, 0.5mL Dosage, [id number] Im Use Q2038 Given 03/13/2014 Fluzone Trivalent Immunization [id number] Refused 09/14/2016 Afluria Or Fluvirin Flu Vac Intramuscular Vital Signs Date Vital Result Comment 05/29/2019 11:09am Body Temperature 97.7 F Weight 128.00 lb Heart Rate 84 /min BP Systolic 124 mmHg BP Diastolic 64 mmHg Respiratory Rate 16 /min Height 60 inches 5'0" O2 % BldC Oximetry 98 % BMI (Body Mass Index) 25.0 kg/m2 Urine Dipstick - Blood neg Urine Dipstick - Protein neg Urine Dipstick - Glucose neg Urine Dipstick - Leukocytes neg 03/07/2019 3:15pm Body Temperature 97.2 F Weight 128.00 lb Heart Rate 92 /min BP Systolic 112 mmHg BP Diastolic 62 mmHg Respiratory Rate 14 /min Height 60 inches 5'0" O2 % BldC Oximetry 98 % BMI (Body Mass Index) 25.0 kg/m2 Results Description No Information Available Procedures Description No Information Available Medical Devices Description No Information Available Encounters Type Date Location Provider Dx Diagnosis Office Visit 03/07/2019 3:15p Casandra Amin NP M54.5 Low back pain Z13.31 Encounter for screening for depression H65.23 Chronic serous otitis media, bilateral Z68.25 Body mass index (BMI) 25.0-25.9, adult Assessments Date Code Description Provider 05/29/2019 R12 Heartburn Casandra Burns NP 05/29/2019 Z68.25 Body mass index (BMI) 25.0-25.9, adult Casandra Burns NP 03/07/2019 M54.5 Low back pain Casandra Burns NP 03/07/2019 Z13.31 Encounter for screening for depression Casandra Burns NP 03/07/2019 H65.23 Chronic serous otitis media, bilateral Casandra Burns, KELLI 03/07/2019 Z68.25 Body mass index (BMI) 25.0-25.9, adult Casandra Burns NP 03/01/2019 Z23 Encounter for immunization Luis Felipe Burns MD 03/01/2019 Z23 Encounter for immunization Nurse Schedule Loc 8 Plan of Treatment 05/29/2019 - Casandra Burns, [id number] HeartburnNew Labs:H. Pylori Stool Ag, Ordered: 05/29/19Comments:will start omeprazole and do stool for h vcomodV34.25 Body mass index (BMI) 25.0-25.9, adultAllNew Medication:Omeprazole 20 mg - 1 by mouth twice a day Functional Status Description No Information Available Mental Status Description No Information Available Referrals Refer to Reason for Referral Status Appt Date [facility] Created [address] [place] [address] [phone] [facility] work injury on her shoulder self Created employed. [address] [place] [address] [phone]
--- OUTSIDE RECORDS SUMMARY | 2019-06-03 13:39 | XMS REPORT | Continuity of Care Document ---
:1985 External Reference #:[id number] Author Name Hernan Cabezas M.D. (transmitted by agent of provider Deirdre Melchor) Address [address] [place] [address] Care Team Providers Name Role Phone Luis Felipe Burns MD - Family Medicine Care Team Information Pastry Assistant Unavailable Problems Description No Information Available Social History Type Date Description Comments Sex Unknown Tobacco Use Start: Unknown End: Used To Smoke Cigarettes But Unknown Quit. ETOH Use Current Alcohol Use - 1-3 Days A Week. Recreational Drug Use Used Recreational Drugs In The Past Allergies, Adverse Reactions, Alerts Description No Known Drug Allergies Medications Active Medications SIG Qnty Indications Ordering Provider Date Omeprazole 1 by mouth 30caps Hernan Cabezas M.D. 07/17/[address] every day DR Ernst Q6H prn For Unknown 06/06/2016 200mg Tablets Pain Advair Diskus Every Day Unknown 02/01/2016 100-50mcg/Dose Aerosol Ortho Tri-Cyclen 1 by mouth Unknown Tablets daily Montelukast Sodium 1 by mouth Unknown 10mg every day Tablets History Medications Ofloxacin (Otic) 3-4drops twice daily 5ml Hernan Cabezas, 10/11/2018 - 0.3% in affected ear for M.D. 04/10/2019 Solution one week Medications Administered in Office Medication SIG Qnty Indications Ordering Provider Date Dexamethasone Hernan Cabezas M.D. 05/07/2017 Injection Injection Ceftriaxone Sodium Per Hernan Cabezas M.D. 05/07/2017 250 MG (Rocephin) Injection Immunizations Description No Information Available Vital Signs Date Vital Result Comment 04/11/2019 3:24pm Weight 134.00 lb Height 60 inches 5'0" BMI (Body Mass Index) 26.2 kg/m2 BP Systolic 105 mmHg BP Diastolic 74 mmHg Heart Rate 85 /min O2 % BldC Oximetry 97 % Body Temperature 97.5 F Pain Level 0 10/11/2018 10:47am Weight 128.00 lb Height 60 inches 5'0" BMI (Body Mass Index) 25.0 kg/m2 BP Systolic 109 mmHg BP Diastolic 68 mmHg Heart Rate 78 /min O2 % BldC Oximetry 98 % Body Temperature 97.6 F Pain Level 3 Results Description No Information Available Procedures Description No Information Available Medical Devices Description No Information Available Encounters Type Date Location Provider Dx Diagnosis Office Visit 10/11/2018 Main Office Leeann Lara, H65.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
--- OUTSIDE RECORDS SUMMARY | 2019-06-03 13:39 | XMS REPORT | Continuity of Care Document ---
:1985 External Reference #:[id number] Author Name Hernan Cabezas M.D. (transmitted by agent of provider Deirdre Melchor) Address [address] [place] [address] Care Team Providers Name Role Phone Luis Felipe Burns MD - Family Medicine Care Team Information Customs Manager Unavailable Problems Description No Information Available Social History Type Date Description Comments Sex Unknown Tobacco Use Start: Unknown End: Used To Smoke Cigarettes But Unknown Quit. ETOH Use Current Alcohol Use - 1-3 Days A Week. Recreational Drug Use Used Recreational Drugs In The Past Allergies, Adverse Reactions, Alerts Description No Known Drug Allergies Medications Active Medications SIG Qnty Indications Ordering Provider Date Prednisone 1 by mouth 5tabs Hernan Cabezas M.D. 04/11/2019 20mg Tablets every day Omeprazole 1 by mouth 30caps Hernan Cabezas M.D. 07/17/[address] every day DR Klever Q6H prn For Unknown 06/06/2016 200mg Tablets Pain Advair Diskus Every Day Unknown 02/01/2016 100-50mcg/Dose Aerosol Ortho Tri-Cyclen 1 by mouth Unknown Tablets daily Montelukast Sodium 1 by mouth Unknown 10mg every day Tablets History Medications Azithromycin 2 by mouth every 6tabs Hernan Cabezas, 04/11/2019 - 250mg Tablets day 1, 1 by Dante 05/14/2019 mouth every day 2-5 Medications Administered in Office Medication SIG Qnty Indications Ordering Provider Date Dexamethasone Hernan Cabezas M.D. 05/07/2017 Injection Injection Ceftriaxone Sodium Per Hernan Cabezas M.D. 05/07/2017 250 MG (Rocephin) Injection Immunizations Description No Information Available Vital Signs Date Vital Result Comment 05/15/2019 10:09am Weight 126.00 lb Height 60 inches 5'0" BMI (Body Mass Index) 24.6 kg/m2 BP Systolic 106 mmHg BP Diastolic 71 mmHg Heart Rate 73 /min O2 % BldC Oximetry 98 % Body Temperature 97.7 F Pain Level 0 04/11/2019 3:24pm Weight 134.00 lb Height 60 inches 5'0" BMI (Body Mass Index) 26.2 kg/m2 BP Systolic 105 mmHg BP Diastolic 74 mmHg Heart Rate 85 /min O2 % BldC Oximetry 97 % Body Temperature 97.5 F Pain Level 0 Results Description No Information Available Procedures Date Code Description Status 04/11/2019 82376 Nasal Endoscopy, Diag. Completed Medical Devices Description No Information Available Encounters Type Date Location Provider Dx Diagnosis Office Visit 04/11/2019 Main Office Hernan Cabezas M.D. J33.0 Polyp of nasal 3:00p cavity J31.0 Chronic rhinitis J32.9 Chronic sinusitis, unspecified Assessments Date Code Description Provider 04/11/2019 J33.0 Polyp of nasal cavity Hernan Cabezas M.D. 04/11/2019 J31.0 Chronic rhinitis Hernan Cabezas M.D. 04/11/2019 J32.9 Chronic sinusitis, unspecified Hernan Cabezas M.D. Plan of Treatment No Information Available Functional Status Description No Information Available Mental Status Description No Information Available Referrals Description No Information Available
--- OUTSIDE RECORDS SUMMARY | 2019-06-03 13:39 | XMS REPORT | Continuity of Care Document ---
:1985 External Reference #:[id number] Author Name Casandra Burns NP Address [address] [place] [address] Problems Active Problems Provider Date Allergic rhinitis [...] Aerosol Ipratropium inhale the 270units Grant, 12/14/2016 [place]/Albuterol contents of one KELLI Guajardo Sulfate vial [...] OswaldoCasandra garber, 05/15/2019 - 10mg every day [employer] C[employer]IFIED NETWORK PROFESSIONAL 05/15/2019 Capsules Loratadine 1 by mouth 30tabs J30.89 Casandra Burns, 05/15/2019 - 10mg every day [employer] CERTIFIED NETWORK PROFESSIONAL 05/15/2019 Tablets Immunizations CPT Code Status Date Vaccine Lot # [id number] Given 03/01/2019 Influenza Vac, Quadrivalent, Split, 0.5mL Dosage, [id number] Im Use 48563 Given 02/07/2018 Influenza Vac, Quadrivalent, Split, 0.5mL Dosage, [id number] Im Use 79863 Given 02/19/2017 Influenza Vac, Quadrivalent, Split, 0.5mL Dosage, [id number] Im Use 29977 Given 06/07/2015 Tdap (Adacel) Ages 7 And Above Only [id number] 99843 Given 02/13/2015 Influenza Vac, Quadrivalent, Split, 0.5mL Dosage, [id number] Im Use Q2038 Given 03/13/2014 Fluzone Trivalent Immunization [id number] Refused 09/14/2016 Afluria Or Fluvirin Flu Vac [...] start omeprazole and do stool for h crslxlS98.25 Body mass index (BMI) 25.0-25.9, adultAllNew Medication:Omeprazole 20 mg - 1 by mouth twice a day Functional Status Description No Information Available Mental Status Description No Information Available Referrals Refer to Reason for Referral Status Appt Date [facility] Created [address] [place] [address] [phone] [facility] work injury on her shoulder self Created employed. [address] [place] [address] [phone]
[2019-06-03 13:53] VITALS: BP 111/72
--- NOTE | 2019-06-03 14:09 | UC ---
Back Pain HPI - HPI Summary HPI Summary: Pt presents with c/o right side low back pain that began ~ 1 week ago. Pt states that she had similar pain in February 2019 and was given flexeril and referral PT. Pt denies injury. 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 - History of Current Complaint Chief Complaint: UCBackPain Stated Complaint: BACK PAIN Time Seen by Provider: 06/03/19 13:54 Hx Obtained From: Patient Hx Last Menstrual Period: 05/24/18 ?: No Onset/Duration: Gradual Onset, Lasting Days, Still Present, Worse Since - onset Timing: Constant Severity Initially: Mild Severity Currently: Severe Pain Intensity: 10 Back Pain: Is Discrete @ - low back Character: Dull, Aching, Spasmodic, Stiffness Aggravating Factor(s): Movement, Lifting, Bending Alleviating Factor(s): Nothing Associated Signs And Symptoms: Positive: Negative - Risk Factors AAA Risk Factors: Negative TAD Risk Factors: Negative Cauda Equina Risk Factors: Negative Epidural Abscess Risk Factors: Negative - Allergies/Home Medications Allergies/Adverse Reactions: Allergies Allergy/AdvReac Type Severity Reaction Status Date / Time environmental Allergy Eyes Uncoded 06/03/19 13:40 Itchy/Swollen/Red/Watery Home Medications: Home Medications Cetirizine HCl/Pseudoephedrine [Zyrtec-D Tablet] 1 each PO DAILY 06/03/19 [ History Confirmed 06/03/19] Cyclobenzaprine TAB* [Flexeril 10 MG TAB*] 10 mg PO TID PRN 06/03/19 [History Confirmed 06/03/19] Fluticasone NASAL SPRAY 50MCG* [Flonase NASAL SPRAY 50MCG*] 06/03/19 [History] guaiFENesin [Mucinex] 600 mg PO DAILY 06/03/19 [History Confirmed 06/03/19] PMH/Surg Hx/FS Hx/Imm Hx Previously Healthy: Yes - Surgical History Surgical History: Yes Surgery Procedure, Year, and Place: Sinus surgery and fixed a deviated septum 2014, sinus surgery July 2015, sinus 02/2017, sinus surgery 05/2018, T&A and ear tubes 06/2017 - Family History Known Family History: Negative: Cardiac Disease, Hypertension, Diabetes, Respiratory Disease - Social History Occupation: Employed Full-time Lives: With Family Alcohol Use: Weekly Substance Use Type: None Smoking Status (MU): Former Smoker Length of Time of Smoking/Using Tobacco: 3 years Have You Smoked in the Last Year: No When Did the Patient Quit Smoking/Using Tobacco: 2009 - Immunization History Most Recent Influenza Vaccination: 2017 Review of Systems All Other Systems Reviewed And Are Negative: Yes Constitutional: Positive: Negative Skin: Positive: Negative Eyes: Positive: Negative ENT: Positive: Negative Respiratory: Positive: Negative Cardiovascular: Positive: Negative Gastrointestinal: Positive: Negative Genitourinary: Positive: Negative Motor: Positive: Decreased ROM - low back Neurovascular: Positive: Negative Musculoskeletal: Positive: Arthralgia, Decreased ROM, Myalgia Neurological: Positive: Negative Psychological: Positive: Negative Is Patient Immunocompromised?: No Physical Exam Triage Information Reviewed: Yes Appearance: Pain Distress Vital Signs: Initial Vital Signs Temp 98.9 F 06/03/19 13:44 Pulse 80 06/03/19 13:44 Resp 18 06/03/19 13:44 BP 111/72 06/03/19 13:44 Pulse Ox 100 06/03/19 13:44 Vital Signs Reviewed: Yes Eye Exam: Normal ENT: Positive: Hearing grossly normal Neck exam: Normal Respiratory: Positive: No respiratory distress Musculoskeletal: Positive: ROM Limited @ - low back Neurological Exam: Normal Psychological Exam: Normal Skin Exam: Normal Back Pain Course/Dx - Differential Dx/Diagnosis Differential Diagnosis/HQI/PQRI: Herniated Disc, Strain, Sprain Provider Diagnosis: Low back pain Discharge ED - Sign-Out/Discharge Documenting (check all that apply): Patient Departure All imaging exams completed and their final reports reviewed: No Studies - Discharge Plan Condition: Stable Disposition: HOME Prescriptions: Ibuprofen TAB* [Motrin TAB* 800 MG] 800 mg PO Q8H PRN #21 tab PRN Reason: Pain - Mild predniSONE 10 mg TAB [Deltasone 10 MG TAB*] 30 mg PO DAILY #12 tab Patient Education Materials: Low Back Strain (ED), Lower Back Exercises (ED) Forms: *Work Release Referrals: King Oconnor MD [Medical Doctor] - If Needed Daisha Burns NP [Primary Care Provider] - As Soon As Possible - Billing Disposition and Condition Condition: STABLE Disposition: Home
== END 2019-06-03 14:31 | disposition home or self-care (01) ==
LOC: UCCORT 13:32
DX: M54.5 Low back pain (principal); Z91.09 Other allergy status, other than to drugs and biological substances; Z87.891 Personal history of nicotine dependence
CPT/HCPCS: 99212; G0463